=== PATIENT | female | born 1975 | race Caucasian/White ===

== ENCOUNTER 2018-10-03 21:38 | Emergency (ER) | payer MEDICAID, SELFPAY ==
[2018-10-03 21:39] VITALS: BP 133/76; PULSE 116; RESP 16; TEMP 36.7; O2SAT 100; BMI 19.9
--- NOTE | 2018-10-03 22:20 | ED.RN ---
RN in room to assess patient. Patient telling RN she thought world was going to end today but states I met my two best friends today God and Satan, God is my and I don't need to be here. I am leaving patient walks out of room and nurse asks to come back. lead worker of housekeeping and laundry enter room to assess patient.
--- NOTE | 2018-10-03 22:29 | CM.ED ---
SOCIAL WORK ASSESSMENT REFERRAL DATE: 10/03/18 DATE OF ASSESSMENT: 10/03/18 INFORMANT: SELF-REFERRAL REASON FOR CONSULT: MENTAL HEALTH-ANXIETY INFORMATION OBTAINED FROM: PATIENT LIVING ARRANGEMENTS: PATIENT REPORTS MOVED TO [facility] FROM THE [facility] OVER A WEEK AGO. SUPPORTS: PATIENT HAS GOOD SUPPORT FROM FRIENDS SOCIAL/FAMILY STRESSORS: PATIENT STATES WOKE UP AND THOUGHT THE WORLD WAS GOING TO END THEN REALIZED IT WASN'T AND FELT BETTER. MENTAL HEALTH HX: PATIENT ADMITS TO HX OF ANXIETY AND DEPRESSION AND STATES FOLLOWS WITH COUNSELING SERVICES. PATIENT UNABLE TO RECALL NAME OF AGENCY. SUBSTANCE ABUSE HX: PATIENT ADMITS TO HX OF SUBSTANCE ABUSE. PATIENT STATES WAS TAKING ADDERALL AND USED METH 3 DAYS AGO. INTERVENTIONS: ASSESSMENT ASSESSMENT: PATIENT IS A 42 Y/O FEMALE WHO PRESENTS TO THE ED FOR ANXIETY. UPON ENTERING ROOM PATIENT DOES NOT WANT TO BE SEEN AND WISHES TO RETURN HOME. PATIENT IS RESIDING AT [facility] AND WILL WALK BACK THERE. PATIENT CAME IN BECAUSE WAS HAVING THOUGHTS THE WORLD WAS GOING TO END, BUT NOW KNOWS THAT IT IS NOT. PATIENT ADMITS TO SUBSTANCE ABUSE. THIS WORKER NOTED PATIENT UNABLE TO KEEP TRACK OF THOUGHTS, JITTERY, AND UNABLE TO MAINTAIN EYE CONTACT. PATIENT DENIES SUICIDAL OR HOMICIDAL IDEATION. PATIENT WISHES TO LEAVE THE HOSPITAL. INFORMED PATIENT DOCTOR WILL BE IN SHORTLY TO ASSESS. PATIENT IN AGREEMENT AT THIS TIME. UPDATED NURSING. PLAN: PHYSICIAN TO ASSESS. PATIENT WISHES TO RETURN TO HOME BEFORE. MALAIKA GUERRA, DRIVER TRAINER, FEDERAL APPELLATE CLERK.
--- NOTE | 2018-10-03 22:48 | ED.VISSUMM ---
- ER Visit Summary Date of Service: 10/03/18 Chief Complaint: Abnormal behavior History of Present Illness: The patient is a 42 F who was brought in due to abnormal behavior. She is from a homeless intermediate. She states that she has recently used methamphetamine. She states that she began to freak out today thinking that the world was ending. She now states that she is over that. Apparently she had also told EMS or nursing here that she was to God. She denies any suicidal ideations or homicidal ideations. She states at this point she does not want any further help and just wants to go back to the homeless intermediate. Physical Examination: Afebrile heart rate 116 vitals otherwise normal Moist mucous membranes Heart regular rhythm tachycardia Lungs are clear Abdomen soft Alert Patient exhibits delusions Test Results: Not indicated Emergency Department Course and Treatment: Patient admits to methamphetamine use and presents with drug-induced psychosis. At this time she is not homicidal. She is not suicidal. I do not believe she represents a risk to herself. She states that she just wants to go back to the homeless intermediate. Patient discharged. Treatment Plan: [] Disposition: Discharge Impression: Drug-induced psychosis This note was generated with [employer] dictation software. It may contain incorrect words, spelling, and punctuation that were not noted in review of the chart prior to signing ED Disposition - Plan for ED Patient: Referrals: Care Physician,No Primary [Primary Care Provider] -
--- NOTE | 2018-10-03 22:50 | ED.DEP ---
ED Disposition - Plan for ED Patient: Instructions: ED Drug Abuse General Referrals: Care Physician,No Primary [Primary Care Provider] -
[2018-10-03 23:00] VITALS: RESP 18; O2SAT 98
== END 2018-10-03 23:01 | disposition home or self-care (01) ==
LOC: ED 22:51
PROVIDERS: Emergency Provider Emergency Medicine
DX: F15.959 Other stimulant use, unspecified with stimulant-induced psychotic disorder, unspecified (principal); Z59.0 Homelessness; Z72.0 Tobacco use
CPT/HCPCS: 99285

== ENCOUNTER 2018-10-04 11:22 | Emergency (ER) | payer MEDICAID, SELFPAY ==
[2018-10-03 21:39] VITALS: BMI 19.9
[2018-10-04 11:23] VITALS: PULSE 83; RESP 16; TEMP 36.5; O2SAT 98; BMI 20.7
--- NOTE | 2018-10-04 11:36 | ED.DCSUM_ITS ---
- ER Visit Summary Date of Service: 10/04/18 Chief Complaint: Tired. History of Present Illness: The patient is a 42 F who states that she is tired. Is currently living in a [place] [facility]. She was here last night for an evaluation because she thought God was to her. She admitted to doing methamphetamines a couple of days ago. It was found that she was in a drug- induced psychosis and was discharged back to the [facility] [place] [facility]. 911 was called today because somebody thought she needed to be evaluated. She complains of a mild headache. She denies being suicidal denies being homicidal. Denies any visual or auditory hallucinations at this time. Physical Examination: Vital signs reviewed. HEENT exam unremarkable. Heart is regular rate and rhythm without murmurs. Lungs are clear to auscultation. Abdomen is soft and nontender. Extremities reveal no edema. Skin exam normal. Neurologic exam normal. She has no visual hallucinations. No auditory hallucinations. Denies seeing or hearing things other people can hear or see. Denies being suicidal or homicidal. Test Results: None performed Emergency Department Course and Treatment: The patient admits to doing methamphetamines to me. I will give her Tylenol for her headache. I do not feel she meets any criteria for acute hospitalization. Patient will be discharged back to the [facility] [place] [facility] Treatment Plan: [] Disposition: Discharge Impression: Headache This note was generated with [employer] dictation software. It may contain incorrect words, spelling, and punctuation that were not noted in review of the chart prior to signing ED Disposition - Plan for ED Patient: Referrals: Care Physician,No Primary [Primary Care Provider] -
--- NOTE | 2018-10-04 11:36 | ED.DEP ---
ED Disposition - Plan for ED Patient: Disposition: Home or Assisted Living Instructions: ED Cephalgia Unspecified Referrals: Care Physician,No Primary [Primary Care Provider] -
[2018-10-04] MEDS: Acetaminophen 500 MG Tablet 1000 MG PO (11:50)
--- NOTE | 2018-10-04 12:10 | NURSING ---
CALLED MALAIKA, OUR NP, TO SEE PATIENT.
--- NOTE | 2018-10-04 12:30 | CM.ED ---
SOCIAL WORK NOTE: UPDATED BY NURSEGILDARDO AND DR. HERNANDEZ, PT DC'ED AND [facility] WILL NOT ACCEPT PT BACK. CALL TO [facility], SPOKE WITH YINKA. PER YINKA, PT WAS YELLING AT REFRIGERATOR STATING SHE WAS GOING TO KILL SOMEONE. YINKA STATES DUE TO OTHER RESIDENTS AND CHILDREN IN THE FACILITY STATES PT UNABLE TO RETURN. YINKA STATES CRISIS WAS ALREADY CALLED AND WANTED PSYCH EVALUATION COMPLETED. INFORMED YINKA PATIENT HAS BEEN D/C'ED AND RIDE ON WAY. YINKA STATES PATIENT WILL BE SENT TO ED AGAIN THIS DAY. NURSING AND DR. HERNANDEZ UPDATED. MALAIKA GUERRA, PATTERN MECHANIC, COSTUMER ASSISTANT.
--- NOTE | 2018-10-04 12:35 | CM.ED ---
SOCIAL WORK NOTE MET WITH PT IN [facility]. PT KNOWN TO THIS WORKER FROM ED VISIT LAST EVENING. PT SITTING UP IN CHAIR DRINKING COFFEE. PATIENT WITH ERRATIC BEHAVIOR. PT ADMITS TO METH USE 3 DAYS AGO AND STATES IS TIRED. PT STATES DOES NOT KNOW WHY SHE IS BACK IN THE HOSPITAL. PT STATES I WAS SLEEPING AND THEN I WAS HERE. WHEN ASKED ABOUT SUICIDAL IDEATION OR HOMICIDAL IDEATION PT DENIES ANY THOUGHTS OR PLANS. PT STATES WISHES TO RETURN TO [facility] TO SLEEP AND EAT. CALL TO [facility] WITH [facility]ISIS TO DISCUSS PT'S CASE. [facility] GARCIA WAS MADE AWARE OF NEED FOR CONSULT. INFORMED [facility] HERNANDEZ HAS D/C'ED PATIENT AND INFORMED HER OF CONVERSATION WITH YINKA AT [facility]. UPDATED PT PRESENT IN ED [facility]. PER HEAVEN, SKIRT MAKER EN ROUTE AND WILL HAVE HER MEET WITH PT FIRST. [facility] TO CALL YINKA AT [facility] AT THIS TIME. MALAIKA GUERRA, CONSUMER INSIGHTS INTERN, RUBBER COMPOUNDER MIXER.
--- NOTE | 2018-10-04 12:53 | ED.RN ---
PT DENIES SUICIDAL, HOMICIDAL IDEATIONS UPON ARRIVAL. SHE HAS MANIC TYPE BODY MOVEMENTS. COOPERATIVE
--- NOTE | 2018-10-04 12:55 | CM.ED ---
SOCIAL WORK NOTE RECEIVED CALL BACK FROM [facility]. PER [facility], SPOKE WITH [facility]INKA AND WAS INFORMED THEY HAVE NOT EVICTED PT FROM FACILITY AT THIS TIME, BUT STATES PT UNABLE TO COME BACK D/T CONCERN FOR OTHER RESIDENTS. AWAITING TANA FROM [facility] AT THIS TIME TO MEET WITH PT. MALAIKA GUERRA, ABATTOIR MANAGER, PERSONAL FITNESS TRAINER.
--- NOTE | 2018-10-04 13:52 | CM.ED ---
SOCIAL WORK NOTE TANA FROM [facility] HERE TALKING WITH PATIENT.
--- NOTE | 2018-10-04 14:03 | CM.ED ---
SOCIAL WORK NOTE PER TANA, PT DOES NOT MEET [facility]ITER[facility] FOR INPATIENT PSYCH. TANA SPOKE WITH THE [employer]. PT UNABLE TO RETURN FOR 30 DAYS. CALL TO [facility] WITH [facility]. UPDATED PT DOES NOT MEET [facility] FOR INPATIENT PSYCH. PER YINKA, WILL NEED TO TALK WITH PATIENT ACCOUNTING REPRESENTATIVE TO DISCUSS PLAN FOR PT RESIDENTS ARE AFRAID OF PT D/T PT'S BEHAVIOR AND HOMICIDAL COMMENTS THIS MORNING. [facility] TO CALL THIS WORKER BACK ONCE HE HAS SPOKEN WITH PATIENT ACCOUNTING REPRESENTATIVE. UPDATED STAFF. MALAIKA GUERRA, LAST PUTTER AWAY, LAB PACK CHEMIST.
--- NOTE | 2018-10-04 14:23 | ED.RN ---
After D/C, pt waiting for ride and RN received a call from [facility] stating pt was not able to return to facility. BRODIE Cordova was assisting from this point and Crisis Jayda evaluated pt determining she was not a psychiatric risk. The patient is currently waiting for a ride again and will return to [facility]. They are aware and will find placement for her if she is unable to remain at the facility.
--- NOTE | 2018-10-04 14:42 | CM.ED ---
SOCIAL WORK NOTE SPOKE WITH YINKA AT [facility]. PER YINKA, [facility] PLANNING FOR PT TO STAY IN [place] OVER THE WEEKEND AND LOOK INTO OTHER HOUSING OPTIONS FOR PT ON SUNDAY. HOSPITAL TRANSPORT HERE TO TRANSPORT PT BACK TO [facility] AT THIS TIME. UPDATED STAFF. MALAIKA GUERRA, CHILDREN'S MINISTER, CHOKER SETTER.
== END 2018-10-04 14:26 | disposition home or self-care (01) ==
LOC: ED 11:54
PROVIDERS: Emergency Provider Emergency Medicine; Family Provider Physician Assistant; PCP Physician Assistant
DX: R51 Headache (principal); F15.90 Other stimulant use, unspecified, uncomplicated; Z59.0 Homelessness
CPT/HCPCS: 99284

== ENCOUNTER 2020-04-07 12:05 | Emergency (ER) | payer MEDICAID, SELFPAY ==
[2020-04-07 12:07] VITALS: BP 110/72; PULSE 95; RESP 16; TEMP 36.7; O2SAT 98; BMI 27.4
--- NOTE | 2020-04-07 12:10 | ED.DCSUM_ITS ---
History of Present Illness Chief Complaint: Mental Health Informant: Patient Narrative: 44-year-old female presenting with chief complaint of hallucinations. She states that sometimes they are inside her head but she feels like her outside of her head currently. She states she has a history of this in the past. States she has a history of ADHD, schizophrenia, bipolar disorder. She states that she had an Invega shot last month and she has been doing well except for she missed her Invega shot due to inability to go to [place] because she has no transportation. Patient states that her hallucinations are mild currently but feels like they may get worse. Denies suicidal or homicidal ideation. She states that otherwise she has been healthy. She states that she has a place to go. She states he has not been doing drugs or drinking alcohol. Past Medical History - Allergies and Home Meds Allergies/Adverse Reactions: Allergies codeine Allergy (Verified 04/07/20 12:07) [place] Primary Care Physician: Fracisco Lei [GROUP OF PHYSICIANS] - 04/15/20 1:30 pm (Dr. Osorio April 15 13:30) Shelly Jean PA [NON-STAFF] - Prior records reviewed: Yes Past Medical History: - - Schizophrenia, ADHD, bipolar disorder Surgical History: noncontributory Smoking Status: Unknown if ever smoked Drugs: - - Street of methamphetamine use. Patient is current use. Review of Systems General: Denies: Chills, Fever, Sweats Eyes: Denies: Visual changes - bilaterally, Diplopia ENT: Denies: Rhinorrhea, Sore throat Cardiovascular: Denies: Chest pain, Palpitations Respiratory: Denies: Dyspnea, Cough, Dyspnea on exertion Gastrointestinal: Denies: Abdominal pain, Nausea, Vomiting, Diarrhea, Melena, Hematochezia Genitourinary: Denies: Dysuria, Hematuria, Frequency Musculoskeletal: Denies: Back pain, Extremity Pain Skin: Denies: Rash, Wounds Neurological: Denies: Headache Psych: Reports: - - Visual and auditory hallucinations Physical Exam General: Well nourished, No Acute Distress Head: Normocephalic, Atraumatic Eyes: Perrl, EOMI Cardiovascular: Regular rate, Regular rhythm Respiratory: No distress, CTA bilaterally Extremities: Nontender, No edema Skin: Normal color, No rash Neurological: Alert, Oriented x3 Psychological: Normal affect, Normal Mood, - - Does not appear agitated. She is calm and talking in normal sentences. No confusion. Diagnostic/Tx/Re-eval Clinical Impression(s) from Imaging Studies Chest X-Ray 04/07/20 12:45 IMPRESSION: Mild degree of increased linear markings at the lung bases suggestive of underlying atelectasis and/or scarring. Electronically Signed: Drew Mcclellan, at 13:18 EDT , Service support , Laboratory Data 04/07/20 04/07/20 04/07/20 12:25 12:25 12:25 WBC 8.2 RBC 4.17 L Hgb 13.1 Hct 39.0 MCV 93.5 MCH 31.4 MCHC 33.6 RDW Std Deviation 44.9 H RDW Coeff of Alondra 13.1 Plt Count 259 MPV 10.2 Immature Gran % (Auto) 0.600 Neut % (Auto) 67.5 Lymph % (Auto) 21.5 Tift % (Auto) 6.2 Eos % (Auto) 3.8 Baso % (Auto) 0.4 Absolute Neuts (auto) 5.5 Absolute Lymphs (auto) 1.76 Nucleated RBC % 0 Sodium 140 Potassium 3.7 Chloride 106 Carbon Dioxide 28.0 Anion Gap 6 BUN 7 Creatinine 0.65 Estim Creat Clear Calc 82.48 Est GFR (MDRD) Af Amer 127 Est GFR (MDRD) Non-Af 105 BUN/Creatinine Ratio 10.8 Glucose 107 H Calcium 8.9 Total Bilirubin 0.30 AST 11 L ALT 20 Alkaline Phosphatase 91 Total Protein 7.4 Albumin 3.7 Globulin 3.7 Albumin/Globulin Ratio 1.0 Serum , Qual Urine Color Urine Clarity Urine pH Ur Specific Ol[place]a Urine Protein Urine Glucose (UA) Urine Ketones Urine Occult Blood Urine Nitrite Urine Bilirubin Urine Urobilinogen Ur Leukocyte Esterase Urine RBC Urine WBC Ur Squamous Epith Cells Urine Bacteria Urine Mucus Urine Opiates Screen Urine Methadone Screen Ur Barbiturates Screen Ur Phencyclidine Scrn Ur Amphetamines Screen U Methamphetamin-MDMA U Benzodiazepines Scrn Urine Cocaine Screen U Cannabinoids Screen Ur Drug Screen Comment Ethyl Alcohol 3.0 04/07/20 04/07/20 04/07/20 12:25 14:00 14:00 WBC RBC Hgb Hct MCV MCH MCHC RDW Std Deviation RDW Coeff of Alondra Plt Count MPV Immature Gran % (Auto) Neut % (Auto) Lymph % (Auto) Tift % (Auto) Eos % (Auto) Baso % (Auto) Absolute Neuts (auto) Absolute Lymphs (auto) Nucleated RBC % Sodium Potassium Chloride Carbon Dioxide Anion Gap BUN Creatinine Estim Creat Clear Calc Est GFR (MDRD) Af Amer Est GFR (MDRD) Non-Af BUN/Creatinine Ratio Glucose Calcium Total Bilirubin AST ALT Alkaline Phosphatase Total Protein Albumin Globulin Albumin/Globulin Ratio Serum , Qual NEGATIVE Urine Color Yellow Urine Clarity Sl. Cloudy Urine pH 6.5 Ur Specific Ol[place] 1.010 Urine Protein Negative Urine Glucose (UA) Normal Urine Ketones Negative Urine Occult Blood Negative Urine Nitrite Negative Urine Bilirubin Negative Urine Urobilinogen Normal Ur Leukocyte Esterase 25 H Urine RBC 0 SEEN Urine WBC 0-5 SEEN Ur Squamous Epith Cells 0-5 SEEN Urine Bacteria 0 SEEN Urine Mucus 0 SEEN Urine Opiates Screen NEGATIVE Urine Methadone Screen NEGATIVE Ur Barbiturates Screen NEGATIVE Ur Phencyclidine Scrn NEGATIVE Ur Amphetamines Screen POSITIVE H U Methamphetamin-MDMA NEGATIVE U Benzodiazepines Scrn NEGATIVE Urine Cocaine Screen NEGATIVE U Cannabinoids Screen NEGATIVE Ur Drug Screen Comment Ethyl Alcohol - Medical Decision Making She presents because she is hearing voices some mild hallucinations. She is calm. She does not appear to be confused. Initially she wanted to be admitted so I did lab work and imaging as well as an EKG. After having her talk to the crisis counselor they were able to set her up with close follow-up so that she can get her medications locally. They did feel she was stable to go home. She will follow-up with Dr. Osorio on April 21, 2020 at 1330. I do believe the patient is safe to be discharged home at this time. She is given return precautions. Impression: 1. history of schizophrenia 2. Hallucinations ED Disposition - Plan for ED Patient: Disposition: Home or Assisted Living Instructions: ED Schizophrenia General Referrals: Shelly Jean PA [NON-STAFF] - [facility] [GROUP OF PHYSICIANS] - 04/15/20 1:30 pm (Dr. Osorio April 15 13:30)
--- NOTE | 2020-04-07 12:19 | EKG12_ITS ---
Test Reason : MENTAL HEALTH Blood Pressure : / mmHG Vent. Rate : 090 BPM Atrial Rate : 090 BPM P-R Int : 148 ms QRS Dur : 098 ms QT Int : 388 ms P-R-T Axes : 039 009 014 degrees QTc Int : 474 ms Normal sinus rhythm Low voltage QRS Incomplete right bundle branch block Cannot rule out Anterior infarct , age undetermined Abnormal ECG Confirmed by SAULO KNAPP ([id number]), digital editor BRIAN REBOLLAR ([id number]) on 04/12/2020 2:17:55 PM Referred By: MARYJANE Confirmed By:SAULO KNAPP
[2020-04-07 12:35] LABS: Absolute Lymphocyte Count 1.76 X10^3/uL (0.83-4.51); Absolute Neutrophil Count 5.5 X10^3/uL (2.0-7.7); Basophil# 0.03 X10^3/uL; Basophil% 0.4 % (0-1); Eosinophil# 0.31 X10^3/uL; Eosinophils% 3.8 % (0-5); Hemoglobin 13.1 g/dL (12.0-15.0); Lymphocyte # 1.76 X10^3/ul (4.0); Lymphocyte % 21.5 % (19-41); Mean Corp Hgb Conc 33.6 g/dL (32-36); Mean Corpuscular Hgb 31.4 pg (27.0-32.0); Mean Corpuscular Volume 93.5 fL (81-99); Mean Platelet Vol. 10.2 fl (6.2-12.0); Monocyte# 0.51 X10^3/uL; Monocyte% 6.2 % (0-10); NRBC Flagged by Analyzer 0 % (0-5); Neutrophil # 5.54 X10^3/uL (2.7-7.7); Neutrophil % 67.5 % (47-70); Platelet Count 259 K/mm3 (150-450); RBC Distribution Width CV 13.1 % (11.6-14.6); RBC Distribution Width SD 44.9 fl (35.1-43.9); Red Blood Count 4.17 M/mm3 (4.2-5.4); White Blood Count 8.2 K/mm3 (4.4-11.0)
--- NOTE | 2020-04-07 12:45 | RAD_ITS ---
STUDY: X-RAY CHEST REASON FOR EXAM: Female, 44 years old. Patient being seen for mental health, hallucinations, x-ray for medical clearance, no Hx of lung disease per patient, patient is a smoker TECHNIQUE: Single AP portable view of the chest. COMPARISON: None. FINDINGS: Mild increased linear markings at the lung bases suggestive of linear atelectasis and/or scarring. There is no demonstrated pleural abnormality. Normal size heart. Normal mediastinum and damian. Normal visualized pulmonary arteries. Normal visualized aortic arch and descending thoracic aorta. Normal visualized thoracic spine. Normal visualized ribs, clavicles, and shoulders. There is no demonstrated abnormality of the visualized soft tissue structures of the upper abdomen. RAD/Chest 1 View (Portable) IMPRESSION: Mild degree of increased linear markings at the lung bases suggestive of underlying atelectasis and/or scarring. Electronically Signed: Drew Mcclellan, at 13:18 EDT , Service support ,
[2020-04-07 13:02] LABS: AST(SGOT) 11 U/L (15-37); Alanine Aminotransfer ALT/SGPT 20 U/L (13-56); Albumin, Serum 3.7 g/dL (3.2-5.0); Alkaline Phosphatase 91 U/L (45-117); Anion Gap 6 (5-15); BUN 7 mg/dL (7-18); BUN/Creat Ratio 10.8 RATIO (10-20); Calcium,Total 8.9 mg/dL (8.5-10.1); Chloride 106 mmol/L (98-107); Creatinine, Serum 0.65 mg/dL (0.55-1.02); EST Glomerular Filtration Rate 105 mL/min (>60); Est Glom Filt Rate - Afr Amer 127 mL/min (>60); Estimated Creatinine Clearance 82.48 ml/min; Globulin 3.7 g/dL (2.2-4.2); Glucose 107 mg/dL (74-106); Potassium 3.7 mmol/L (3.5-5.1); Protein, Total 7.4 g/dL (6.4-8.2); Sodium Level 140 mmol/L (136-145)
[2020-04-07 13:24] LABS: Internal QC Validated? YES +Cl - CLEAR BKGD; Pregnancy, Serum, hCG Quali. NEGATIVE Negative
[2020-04-07 13:50] VITALS: RESP 14
[2020-04-07 14:08] LABS: Bacteria 0 SEEN /hpf (None Seen); Mucous, Urine 0 SEEN /hpf (<or=2+); Red Blood Cells-Urine 0 SEEN /hpf (0-5)
[2020-04-07 14:16] LABS: Color, Urine Yellow (Yellow); Glucose, Dipstick Normal (Normal); Ketone-Dipstick Negative (Negative); Leukocyte Esterase-Dipstick 25 /ul (Negative); Nitrite-Dipstick Negative (Negative); Occult Blood-Urine Negative /ul (Negative); Protein-Dipstick Negative (Negative); Urine Bilirubin Dipstick Negative (Negative); Urine Clarity Sl. Cloudy (Clear); Urine Urobilinogen Normal (Normal); Urine pH 6.5 (5.0 - 8.0)
[2020-04-07 14:29] LABS: Amphetamine Urine VISTA POSITIVE (<1000 ng/mL); Barbiturate Urine VISTA NEGATIVE (< 200 ng/mL); Benzodiazepine Urine VISTA NEGATIVE (< 200 ng/mL); Cocaine Urine VISTA NEGATIVE (< 300 ng/mL); Ecstacy Urine VISTA NEGATIVE (< 500 ng/mL); Methadone Urine VISTA NEGATIVE (< 300 ng/mL); PCP Urine VISTA NEGATIVE (< 25 ng/mL); THC Urine VISTA NEGATIVE (< 50 ng/mL); Vista UDS pH Range 5
[2020-04-07 14:30] LABS: Squamous Epithelial Cells - UA 0-5 SEEN /hpf (5-10); White Blood Cells 0-5 SEEN /hpf (0-5)
[2020-04-07 14:52] VITALS: BP 116/75
--- NOTE | 2020-04-07 14:52 | NURSING ---
FAXING CHART TO [facility], [facility],
[2020-04-07 15:36] VITALS: RESP 14
[2020-04-07 16:14] VITALS: BP 102/72; PULSE 90; RESP 16; O2SAT 98
--- NOTE | 2020-04-07 16:14 | ED.RN ---
BELONGINGS RETURNED TO PATIENT. DISCHARGE INSTRUCTIONS GIVEN TO AND REVIEWED WITH PATIENT, PATIENT DENIES QUESTIONS OR CONCERNS AND VOICES UNDERSTANDING OF DISCHARGE INSTRUCTIONS. PT AMBULATES OUT OF ROOM WITHOUT DIFFICULTY.
== END 2020-04-07 16:15 | disposition home or self-care (01) ==
PROVIDERS: Emergency Provider Student in an Organized Health Care Education/Training Program
DX: F20.9 Schizophrenia, unspecified (principal); F31.9 Bipolar disorder, unspecified; F90.9 Attention-deficit hyperactivity disorder, unspecified type; Z79.899 Other long term (current) drug therapy
CPT/HCPCS: 71045; 80053; 80307; 80320; 81001; 84703; 85025; 93005; 99283; G0480

== ENCOUNTER 2020-09-01 21:54 | Emergency (ER) | payer MEDICAID, SELFPAY ==
[2020-05-20 09:54] VITALS: BMI 27.4
[2020-09-01 21:55] VITALS: BP 121/93; PULSE 118; RESP 18; TEMP 36.1; O2SAT 98; BMI 25.8
--- NOTE | 2020-09-01 22:35 | ED.DCSUM_ITS ---
History of Present Illness Chief Complaint: Mental Health Informant: Patient, - - Law enforcement Onset: Today Context: Sudden Onset - Presumed sudden Timing: Continuous - Continuous Quality: Pacing, hyperactive, pressured speech and admission of methamphetamine use Location: Public property Current Severity: Moderate Maximum Severity: Moderate Worsened by: Inhalation of methamphetamine Relieved by: Nothing Associated Symptoms: Unable to determine Narrative: Patient is a 44-year-old woman who has been seen in the emergency department for mental health reasons. She does not know what medicine she was prescribed and should be taking. She does admit to smoking methamphetamine. She states she has addiction to methamphetamine. She would not answer past surgical history. She would not answer questions regarding past medical history. Patient is pacing in the room. Patient would not sit on the examination cot. She would not allow nurses to perform there duty. Patient was informed that she could be cooperative and it was explained to her what cooperative meant. And she was informed what it meant to be uncooperative. After she was told the consequences of not being cooperative she sat in the bed and allow nursing staff to attain an IV, blood work and initiate medical treatment Capacity - Capacity Assessment Tool Can the patient make a choice & communicate that choice?: No Can the patient understand benefits, risks and alternatives?: No Can the patient make a logical, rational choice?: No Is the choice the patient makes consistent w/ their values?: Unable to Determine Is there an impending, emergent risk to the patient?: Unable to Determine Does the patient have an Advance Directive?: No Is there a Surrogate Available?: No i.e. HCPOA: No i.e. close relative (spouse, child, parent, sibling)?: Unable to Determine Past Medical History - Allergies and Home Meds Allergies/Adverse Reactions: Allergies codeine Allergy (Verified 09/01/20 21:59) Hives Primary Care Physician: Care Physician,No Primary [Primary Care Provider] - Prior records reviewed: Yes Surgical History: noncontributory Lives: Alone Smoking Status: Unknown if ever smoked Alcohol: None - Unknown Drugs: - - Methamphetamine Review of Systems ROS: Unable to Obtain - Patient stated she needs to be institutionalized. Patient would not answer questions regarding drug rehabilitation or psychiatric evaluation. Physical Exam Vital Signs/Narrative: Vital Signs Temp Pulse Resp BP Pulse Ox 09/01/20 21:55 96.9 F L 118 H 18 121/93 H 98 Inital Vital Signs reviewed: Yes General: Well nourished, Well developed, - - Patient pacing, pressured speech, slightly agitated. Head: Normocephalic, Atraumatic Eyes: Perrl, EOMI. Negative for: Pale conjunctiva, Scleral icterus ENT: No rhinorrhea, Dry mucous membranes Neck: Supple, Nontender, No lymphadenopathy, No JVD Cardiovascular: Regular rhythm, No murmurs, Normal S1, Normal S2, S3, Tachycardia Respiratory: No distress, CTA bilaterally, Chest nontender Abdomen: Soft, Nontender, Nondistended, Normal bowel sounds Back: Nontender Extremities: Nontender, No edema Skin: Normal color, No rash, No Trauma. Negative for: Cyanosis, Diaphoresis, Jaundice Neurological: Alert, Oriented x3, Cranial nerves II-XII grossly intact, Normal Strength, Normal Sensation, Normal Gait Psychological: Agitated, - - Speech, hyperactivity, not rational. Diagnostic/Tx/Re-eval Laboratory Results 09/01/20 09/01/20 09/01/20 22:32 22:40 22:40 WBC 16.3 H RBC 4.22 Hgb 13.2 Hct 37.6 MCV 89.1 MCH 31.3 MCHC 35.1 RDW Std Deviation 41.4 RDW Coeff of Alondra 12.7 Plt Count 435 MPV 10.7 Immature Gran % (Auto) 1.900 H Neut % (Auto) 81.9 H Lymph % (Auto) 10.7 L Hamlin % (Auto) 5.1 Eos % (Auto) 0.1 Baso % (Auto) 0.3 Absolute Neuts (auto) 13.4 H Absolute Lymphs (auto) 1.74 Nucleated RBC % 0 Sodium 136 Potassium 3.1 L Chloride 103 Carbon Dioxide 22.0 Anion Gap 11 BUN 17 Creatinine 0.65 Estim Creat Clear Calc 102.32 Est GFR (MDRD) Af Amer 125 Est GFR (MDRD) Non-Af 104 BUN/Creatinine Ratio 26.0 H Glucose 95 Calcium 9.3 Serum , Qual Urine Opiates Screen NEGATIVE Urine Methadone Screen NEGATIVE Ur Barbiturates Screen NEGATIVE Ur Phencyclidine Scrn NEGATIVE Ur Amphetamines Screen POSITIVE H U Methamphetamin-MDMA POSITIVE H U Benzodiazepines Scrn NEGATIVE Urine Cocaine Screen NEGATIVE U Cannabinoids Screen NEGATIVE Ur Drug Screen Comment Ethyl Alcohol 09/01/20 09/01/20 22:40 22:40 WBC RBC Hgb Hct MCV MCH MCHC RDW Std Deviation RDW Coeff of Alondra Plt Count MPV Immature Gran % (Auto) Neut % (Auto) Lymph % (Auto) Hamlin % (Auto) Eos % (Auto) Baso % (Auto) Absolute Neuts (auto) Absolute Lymphs (auto) Nucleated RBC % Sodium Potassium Chloride Carbon Dioxide Anion Gap BUN Creatinine Estim Creat Clear Calc Est GFR (MDRD) Af Amer Est GFR (MDRD) Non-Af BUN/Creatinine Ratio Glucose Calcium Serum , Qual NEGATIVE Urine Opiates Screen Urine Methadone Screen Ur Barbiturates Screen Ur Phencyclidine Scrn Ur Amphetamines Screen U Methamphetamin-MDMA U Benzodiazepines Scrn Urine Cocaine Screen U Cannabinoids Screen Ur Drug Screen Comment Ethyl Alcohol < 3.0 CBC is elevated which could be due to agitation and use of sympathomimetics. Talk screen is positive for methamphetamine and amphetamines. Serum test is negative. Alcohol is less than 3.0. 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 - Medical Decision Making Patient appears to be under the influence of a sympathomimetic. IV was established. She received 2 mg of Ativan since there is no IV Valium available. Will also administer IV Versed since onset is much quicker and will take effect prior to the onset of Ativan. Work-up was undertaken to determine metabolic or infectious etiology. If this is drug-induced psychosis will again ask patient if she would like help with regards to her drug addiction. If this is a true psychiatric crisis will obtain consultation with licensed nuclear operator from the crisis center. Physical exam was completed after patient received 2 mg of Versed and 2 mg of Ativan. She is resting comfortably. She is no longer agitated, pacing and speech is not pressured. Since she responded to benzodiazepine and was t achycardic suspect this is amphetamine induced psychosis. Review of prior records indicates patient has history of schizophrenia and drug- induced psychosis. Attempt to reevaluate at 0005 was unsuccessful because patient is asleep and did not arouse to light touch or verbal stimulus. Will allow patient to sleep and reevaluate later. Patient was reassessed at 0305. She states she is able to call for a ride. She is no longer agitated. ED Disposition - Plan for ED Patient: Diagnosis: Substance or medication-induced psychotic disorder, Methamphetamine use disorder, mild, abuse Instructions: ED Drug Abuse, ED Psychosis Referrals: Care Physician,No Primary [Primary Care Provider] - [facility] [STAFF PHYSICIAN] - As soon as possible
[2020-09-01] MEDS: Midazolam 2 MG/2 ML Syringe IV (22:46)
[2020-09-01] MEDS: LORazepam 2 MG/ML Syringe IV (22:48)
[2020-09-01 23:09] LABS: Amphetamine Urine VISTA POSITIVE (<1000 ng/mL); Barbiturate Urine VISTA NEGATIVE (< 200 ng/mL); Benzodiazepine Urine VISTA NEGATIVE (< 200 ng/mL); Cocaine Urine VISTA NEGATIVE (< 300 ng/mL); Ecstacy Urine VISTA POSITIVE (< 500 ng/mL); Methadone Urine VISTA NEGATIVE (< 300 ng/mL); PCP Urine VISTA NEGATIVE (< 25 ng/mL); THC Urine VISTA NEGATIVE (< 50 ng/mL); Vista UDS pH Range 5
[2020-09-01 23:13] LABS: Internal QC Validated? YES +Cl - CLEAR BKGD; Pregnancy, Serum, hCG Quali. NEGATIVE Negative
[2020-09-01 23:19] LABS: Alcohol, Blood (Medical)-Serum < 3.0 mg/dL; Anion Gap 11 (5-15); BUN 17 mg/dL (7-18); Calcium,Total 9.3 mg/dL (8.5-10.1); Chloride 103 mmol/L (98-107); Creatinine, Serum 0.65 mg/dL (0.55-1.02); EST Glomerular Filtration Rate 104 mL/min (>60); Est Glom Filt Rate - Afr Amer 125 mL/min (>60); Estimated Creatinine Clearance 102.32 ml/min; Glucose 95 mg/dL (74-106); Potassium 3.1 mmol/L (3.5-5.1); Sodium Level 136 mmol/L (136-145)
[2020-09-01 23:29] VITALS: RESP 14
[2020-09-01 23:29] LABS: Absolute Lymphocyte Count 1.74 X10^3/uL (0.83-4.51); Absolute Neutrophil Count 13.4 X10^3/uL (2.0-7.7); Basophil# 0.05 X10^3/uL; Basophil% 0.3 % (0-1); Eosinophil# 0.01 X10^3/uL; Eosinophils% 0.1 % (0-5); Hematocrit 37.6 % (37-47); Hemoglobin 13.2 g/dL (12.0-15.0); Lymphocyte # 1.74 X10^3/ul (4.0); Lymphocyte % 10.7 % (19-41); Mean Corp Hgb Conc 35.1 g/dL (32-36); Mean Corpuscular Hgb 31.3 pg (27.0-32.0); Mean Corpuscular Volume 89.1 fL (81-99); Mean Platelet Vol. 10.7 fl (6.2-12.0); Monocyte# 0.83 X10^3/uL; Monocyte% 5.1 % (0-10); NRBC Flagged by Analyzer 0 % (0-5); Neutrophil # 13.36 X10^3/uL (2.7-7.7); Neutrophil % 81.9 % (47-70); Platelet Count 435 K/mm3 (150-450); RBC Distribution Width CV 12.7 % (11.6-14.6); RBC Distribution Width SD 41.4 fl (35.1-43.9); Red Blood Count 4.22 M/mm3 (4.2-5.4); White Blood Count 16.3 K/mm3 (4.4-11.0)
[2020-09-02] VITALS (7 sets, daily range): BP systolic 114; BP diastolic 85; PULSE 114; RESP 14–16; O2SAT 99
== END 2020-09-02 07:06 | disposition home or self-care (01) ==
PROVIDERS: Emergency Provider Emergency Medicine
DX: F15.10 Other stimulant abuse, uncomplicated (principal); F20.9 Schizophrenia, unspecified; Z79.899 Other long term (current) drug therapy
CPT/HCPCS: 80048; 80307; 82077; 84703; 85025; 96374; 96375; 99284

== ENCOUNTER 2020-09-22 12:15 | Emergency (ER) | payer MEDICAID, SELFPAY ==
[2020-09-22] VITALS (12 sets, daily range): BP systolic 122–131; BP diastolic 79–118; PULSE 97–125; RESP 16–20; TEMP 36.1; O2SAT 96–100; BMI 24.7
--- NOTE | 2020-09-22 12:27 | CT_ITS ---
STUDY: CT BRAIN WITHOUT CONTRAST REASON FOR EXAM: Female, 49 years old. ALTERED MENTAL STATUS, NO OTHER HISTORY AVAILABLE RADIATION DOSAGE (If Supplied By Facility): CTDIvol = ( 44.99 ) mGy, DLP = ( 796.11 ) mGycm TECHNIQUE: Transaxial CT imaging of the brain was performed without administration of intravenous contrast material. Individualized dose optimization techniques were used for this CT. COMPARISON: No relevant priors. FINDINGS: Normal soft tissue structures. Normal calvarium. Normal size ventricles and extra-axial spaces for the patient''s age. Normal white matter tracts of the cerebral hemispheres. Normal basal ganglia and thalami. Normal brainstem. Normal cerebellum. There is no intracranial hemorrhage. There are no findings of an acute ischemic infarction. Normal visualized paranasal sinuses. CT/Brain/Head without Contrast IMPRESSION: Normal unenhanced CT scan of the brain. Electronically Signed: Drew Mcclellan MD at 13:23 EST , Service support ,
--- NOTE | 2020-09-22 12:29 | ED.DCSUM_ITS ---
History of Present Illness Informant: Nuclear Power Reactor Operator Narrative: Female of unknown age brought in by police and fire department. Patient was apparently at a local motel and came inside wandering around acting incoherent. Police were called. She initially tried to evade but calm down in the ambulance. She has not spoken. She will not tell us her name. She had a cell phone that is locked. She is wearing a T-shirt a pair of sweatpants shorts and socks and slippers. She has a tight here band like material wrapped tightly around her right hand. She is shivering and cold to the touch. Patient keeps her head down and will not look at staff. PGT was normal for EMS. She had no ID or paraphernalia on her. <Dieudonne Mendiola - Last Filed: 09/22/20 15:42> <Mikel Izquierdo - Last Filed: 09/23/20 00:55> Chief Complaint: Alt LOC Past Medical History Past Medical History: - - Unable to obtain Surgical History: - - Unable to obtain Lives: - - Unable to obtain Smoking Status: Unknown if ever smoked Drugs: - - unable to obtain <Dieudonne Mendiola - Last Filed: 09/22/20 15:42> <Mikel Izquierdo - Last Filed: 09/23/20 00:55> - Allergies and Home Meds Allergies/Adverse Reactions: Allergies codeine Allergy (Verified 09/01/20 21:59) Hives Primary Care Physician: NOT,DEFINED [Primary Care Provider] - Review of Systems ROS: Unable to Obtain <Dieudonne Mendiola - Last Filed: 09/22/20 15:42> Physical Exam Vital Signs/Narrative: Vital Signs Temp Pulse Resp BP Pulse Ox 09/22/20 12:16 97 F L 125 H 20 H 131/92 H 96 Inital Vital Signs reviewed: Yes General: Well nourished, Well developed, No Acute Distress Head: Normocephalic, Atraumatic Eyes: Perrl, EOMI ENT: Moist mucous membranes, No rhinorrhea Neck: Supple, Nontender Cardiovascular: Regular rate, No murmurs, Tachycardia Respiratory: No distress, CTA bilaterally, Chest nontender Abdomen: Soft, Nontender, Nondistended, Normal bowel sounds Back: Nontender, Normal Inspection Extremities: Nontender, No edema Skin: Normal color, No rash, Trauma - Superficial abrasions to the left hand Neurological: Alert, - - Patient moves all 4 extremities. She does not participate in the exam. <Dieudonne Mendiola - Last Filed: 09/22/20 15:42> Vital Signs/Narrative: Vital Signs Pulse Resp BP Pulse Ox 09/23/20 00:00 16 09/22/20 23:00 97 17 129/79 H 99 09/22/20 22:00 17 09/22/20 21:00 17 <Mikel Izquierdo - Last Filed: 09/23/20 00:55> Diagnostic/Tx/Re-eval Clinical Impression(s) from Imaging Studies Brain CT 09/22/20 12:27 IMPRESSION: Normal unenhanced CT scan of the brain. Electronically Signed: Drew Mcclellan MD at 13:23 EST , Service support , Chest X-Ray 09/22/20 13:12 IMPRESSION: Normal x-ray examination of the chest. Electronically Signed: Drew Mcclellan MD at 13:25 EST , Service support , - EKG Initial EKG Interpretation: Sinus Tachycardia - EKG shows a sinus tachycardia at a rate of 115. There are no concerning features of ACS or ectopy. - Medical Decision Making My interpretation of the single view portable chest x-ray is no acute process. CT of the brain was obtained and is negative for acute as well. Patient eventually started speaking and had very sporadic movements and twitches. She is able to ambulate to the bathroom. She was able to actually give us her name. But she is still having a paucity of speech. Patient received warm blankets and basic blood work was drawn. He has an elevated CPK of 3400. She received initially 2 L of IV fluids followed by additional 2 L of lactated Ringer's. A repeat CPK will be ordered. Once she is medically cleared we can reassess her mental health. <Dieudonne Mendiola - Last Filed: 09/22/20 15:42> - Medical Decision Making Felecia-patient was turned over to me. She is now lucid and coherent her CPK is improving she received IV fluids. She wants to be discharged and this is reasonable. <Mikel Izquierdo - Last Filed: 09/23/20 00:55> ED Disposition <Dieudonne Mendiola - Last Filed: 09/22/20 15:42> <Mikel Izquierdo - Last Filed: 09/23/20 00:55> - Plan for ED Patient: Disposition: Home or Assisted Living Diagnosis: Methamphetamine abuse, Catatonia, Rhabdomyolysis Instructions: ED Rhabdomyolysis, ED Drug Abuse Referrals: NOT,DEFINED [Primary Care Provider] -
[2020-09-22 12:56] LABS: Absolute Lymphocyte Count 1.34 X10^3/uL (0.83-4.51); Basophil# 0.03 X10^3/uL; Basophil% 0.3 % (0-1); Eosinophil# 0.06 X10^3/uL; Eosinophils% 0.5 % (0-5); Hematocrit 38.6 % (37-47); Hemoglobin 13.7 g/dL (12.0-15.0); Lymphocyte # 1.34 X10^3/ul (4.0); Lymphocyte % 11.5 % (19-41); Mean Corp Hgb Conc 35.5 g/dL (32-36); Mean Corpuscular Hgb 32.6 pg (27.0-32.0); Mean Corpuscular Volume 91.9 fL (81-99); Mean Platelet Vol. 10.1 fl (6.2-12.0); Monocyte# 1.09 X10^3/uL; Monocyte% 9.4 % (0-10); NRBC Flagged by Analyzer 0 % (0-5); Neutrophil # 9.04 X10^3/uL (2.7-7.7); Neutrophil % 77.9 % (47-70); Platelet Count 397 K/mm3 (150-450); RBC Distribution Width CV 13.7 % (11.6-14.6); RBC Distribution Width SD 45.6 fl (35.1-43.9); White Blood Count 11.6 K/mm3 (4.4-11.0)
[2020-09-22 13:01] LABS: Internal QC Validated? YES +Cl - CLEAR BKGD
[2020-09-22 13:06] LABS: Pregnancy, Serum, hCG Quali. NEGATIVE Negative
--- NOTE | 2020-09-22 13:06 | EKG12_ITS ---
Test Reason : ALTERED LOC Blood Pressure : / mmHG Vent. Rate : 115 BPM Atrial Rate : 115 BPM P-R Int : 130 ms QRS Dur : 086 ms QT Int : 342 ms P-R-T Axes : 050 013 040 degrees QTc Int : 473 ms Sinus tachycardia Low voltage QRS Possible Anterolateral infarct , age undetermined Abnormal ECG Confirmed by LYUDMILA PURDY, CAL ([id number]), non linear editor DION GU ([id number]) on 09/27/2020 11:08:00 AM Referred By: AUNG Confirmed By:ANNE COREAS MD
[2020-09-22 13:07] LABS: Partial Thromboplast Time 30.4 Seconds (24.1-36.2); Prothrombin Time (Protime)PT. 12.7 SECONDS (11.7-14.9)
[2020-09-22 13:08] LABS: Bacteria 0 SEEN /hpf (None Seen); Mucous, Urine 0 SEEN /hpf (<or=2+); Red Blood Cells-Urine 0 SEEN /hpf (0-5); Squamous Epithelial Cells - UA 0 SEEN /hpf (5-10); White Blood Cells 0 SEEN /hpf (0-5)
[2020-09-22 13:11] LABS: Color, Urine Yellow (Yellow); Glucose, Dipstick Normal (Normal); Ketone-Dipstick 15 mg/dl (Negative); Leukocyte Esterase-Dipstick 25 /ul (Negative); Nitrite-Dipstick Negative (Negative); Occult Blood-Urine Negative /ul (Negative); Protein-Dipstick Negative (Negative); Specific Gravity, Urine 1.015 (1.002-1.030); Urine Bilirubin Dipstick Negative (Negative); Urine Clarity Clear (Clear); Urine Urobilinogen Normal (Normal); Urine pH 6.5 (5.0 - 8.0)
--- NOTE | 2020-09-22 13:12 | RAD_ITS ---
STUDY: X-RAY CHEST REASON FOR EXAM: Female, 49 years old. Altered mental status TECHNIQUE: Single AP portable view of the chest. COMPARISON: None. FINDINGS: EKG electrodes are seen. The lungs are clear and expanded. There is no demonstrated pleural abnormality. Normal size heart. Normal mediastinum and damian. Normal visualized pulmonary arteries. Normal visualized aortic arch and descending thoracic aorta. Normal visualized thoracic spine. Normal visualized ribs, clavicles, and shoulders. There is no demonstrated abnormality of the visualized soft tissue structures of the upper abdomen. RAD/Chest 1 View (Portable) IMPRESSION: Normal x-ray examination of the chest. Electronically Signed: Drew Mcclellan MD at 13:25 EST , Service support ,
[2020-09-22 13:18] LABS: ALB/GLOB Ratio 1.1 RATIO (0.9-2.4); AST(SGOT) 101 U/L (15-37); Alanine Aminotransfer ALT/SGPT 44 U/L (13-56); Albumin, Serum 4.1 g/dL (3.2-5.0); Alkaline Phosphatase 86 U/L (45-117); Anion Gap 11 (5-15); BUN 7 mg/dL (7-18); BUN/Creat Ratio 9.6 RATIO (10-20); Calcium,Total 9.1 mg/dL (8.5-10.1); Chloride 99 mmol/L (98-107); Creatinine, Serum 0.73 mg/dL (0.55-1.02); Estimated Creatinine Clearance 79.61 ml/min; Globulin 3.6 g/dL (2.2-4.2); Glucose 102 mg/dL (74-106); Lipase 37 U/L (73-393); Potassium 3.2 mmol/L (3.5-5.1); Protein, Total 7.7 g/dL (6.4-8.2); Sodium Level 135 mmol/L (136-145)
[2020-09-22 13:26] LABS: Amphetamine Urine VISTA POSITIVE (<1000 ng/mL); Barbiturate Urine VISTA NEGATIVE (< 200 ng/mL); Benzodiazepine Urine VISTA NEGATIVE (< 200 ng/mL); Cocaine Urine VISTA NEGATIVE (< 300 ng/mL); Ecstacy Urine VISTA POSITIVE (< 500 ng/mL); Methadone Urine VISTA NEGATIVE (< 300 ng/mL); PCP Urine VISTA NEGATIVE (< 25 ng/mL); THC Urine VISTA NEGATIVE (< 50 ng/mL); Vista UDS pH Range 6
[2020-09-22 13:29] LABS: Alcohol, Blood (Medical)-Serum < 3.0 mg/dL
[2020-09-22 13:35] LABS: CPK Total, Creatine Kinase 3416 U/L (26-192)
[2020-09-22 13:41] LABS: Lactic Acid 1.7 mmol/L (0.4-1.9)
--- NOTE | 2020-09-22 13:49 | ED.RN ---
pt awake /talking. pt asks for oj and apple juice. pt given meal, pt very polite and thanks this rn
[2020-09-22] MEDS: 0.9% Normal Saline 1,000 ML 999 ML IV ×2 (13:57→14:45)
[2020-09-22] MEDS: Haloperidol Lactate 5 MG/ML Vial 10 MG IM (14:08)
[2020-09-22] MEDS: LORazepam 2 MG/ML Syringe IM (14:08)
[2020-09-22] MEDS: Lactated Ringers 1,000 ML 999 ML IV ×2 (15:34→17:58)
[2020-09-22 15:50] LABS: CPK Total, Creatine Kinase 2340 U/L (26-192)
--- NOTE | 2020-09-22 18:52 | ED.RN ---
PT PULLED OUT HER IV AGAIN.
[2020-09-22 21:58] LABS: CPK Total, Creatine Kinase 1819 U/L (26-192)
--- NOTE | 2020-09-22 23:53 | ED.RN ---
Pt able to state name and . Thinks she is at her friends house and it is 2014. notified.
[2020-09-23] VITALS: RESP 16
[2020-09-23 00:56] VITALS: PULSE 97; RESP 17; O2SAT 98
== END 2020-09-23 00:59 | disposition home or self-care (01) ==
PROVIDERS: Emergency Medicine; Emergency Provider Emergency Medicine
DX: F15.10 Other stimulant abuse, uncomplicated (principal); F20.2 Catatonic schizophrenia; M62.82 Rhabdomyolysis
CPT/HCPCS: 36415; 70450; 71045; 80053; 80307; 81001; 82077; 82550; 83605; 83690; 84484; 84703; 85025; 85610; 85730; 93005; 96360; 96361; 96372; 99285; J7030; J7120; A4216

== ENCOUNTER 2020-10-02 09:18 | Emergency (ER) | payer MEDICAID, SELFPAY ==
[2020-10-02 09:21] VITALS: BP 157/103; PULSE 99; RESP 18; TEMP 35.7; O2SAT 99; BMI 28.3
[2020-10-02] MEDS: LORazepam 1 MG Tablet PO (10:16)
--- NOTE | 2020-10-02 10:19 | ED.VISSUMM ---
- ER Visit Summary Date of Service: 10/02/20 Chief Complaint: Abnormal behavior History of Present Illness: The patient is a 44 F who presents with abnormal behavior that was noticed today. Patient was brought in because she was saying that her father was trying to get her. Nursing reports that the patient told them that her father put a pentagram in the street and was out to get her. Patient told me she is feeling better and just is feeling depressed. Patient denies any suicidal or homicidal ideations. Patient states she has been noncompliant with her antidepressants. Patient denies any other complaints. Physical Examination: Vital signs are stable. Patient is afebrile. Patient is in no acute distress. Oral mucosa is pink and moist. Neck is supple. Trachea is midline. There is no JVD noted. Heart was regular rate and rhythm. Lungs are clear and equal bilaterally. Abdomen is soft. Bowel sounds are normal. There is no tenderness. There is no rebound or guarding noted. Skin is warm dry. Cranial nerves II through XII are intact. There are no focal motor or sensory deficits noted. Extremities are intact. There is no calf tenderness or edema. Patient does have a flat affect. Patient does have some pressured speech and is quick to answer questions. Patient denies any suicidal or homicidal ideations. Test Results: Urine tox screen was positive for amphetamines and methamphetamines. Patient refused any other lab work. Emergency Department Course and Treatment: Patient was given a dose of Ativan here. Patient states she is feeling better and wants to go home. political worker was in to evaluate the patient. Patient is not suicidal or homicidal. Patient is coherent and able to make sound judgments. Patient will be discharged home. Patient was instructed to follow-up with her primary care physician in 5 to 7 days. Patient does not want help with methamphetamine abuse. Patient understood and was agreeable with the plan. All questions were answered. Disposition: Discharge home Impression: 1. Methamphetamine abuse This note was generated with [employer] dictation software. It may contain incorrect words, spelling, and punctuation that were not noted in review of the chart prior to signing ED Disposition - Plan for ED Patient: Disposition: Home or Assisted Living Diagnosis: Methamphetamine abuse Instructions: ED Depression, ED Drug Abuse Referrals: Gloria Marion [NON-STAFF] - 5-7 Days
[2020-10-02 10:36] LABS: Amphetamine Urine VISTA POSITIVE (<1000 ng/mL); Barbiturate Urine VISTA NEGATIVE (< 200 ng/mL); Benzodiazepine Urine VISTA NEGATIVE (< 200 ng/mL); Cocaine Urine VISTA NEGATIVE (< 300 ng/mL); Ecstacy Urine VISTA POSITIVE (< 500 ng/mL); Methadone Urine VISTA NEGATIVE (< 300 ng/mL); PCP Urine VISTA NEGATIVE (< 25 ng/mL); THC Urine VISTA NEGATIVE (< 50 ng/mL); Vista UDS pH Range 6
--- NOTE | 2020-10-02 10:40 | CM.ED ---
SOCIAL WORK ASSESSMENT Informant: Dr. Wayne Reason for Consult: Mental Health/Substance Abuse Collaboration with Dr. Wayne. Patient requesting to leave. Patient positive for methamphetamines. Patient denies any suicidal or homicidal ideation. Met with patient in room. Introduced role and reason for referral. Patient reports history of anxiety and depression and states, I feel better now. Patient states follows with [facility]. Patient denies any substance abuse. Discussed patient's positive tox screen. Patient states oh yeah, well meth. Patient declines any need for assistance with substance abuse. Patient states lives with friends and will return home. Patient continues to deny any suicidal or homicidal ideation. Updated Dr. Wayne and nursing on the above. All in agreement with plan for discharge home. Plan: Home Diaz Vaughn MSW, BROADCAST OPERATIONS MANAGER
[2020-10-02 10:54] VITALS: BP 128/76; PULSE 82; RESP 16; O2SAT 97
== END 2020-10-02 10:56 | disposition home or self-care (01) ==
PROVIDERS: Emergency Provider Emergency Medicine
DX: F15.10 Other stimulant abuse, uncomplicated (principal); Z91.19 Patient's noncompliance with other medical treatment and regimen; F32.9 Major depressive disorder, single episode, unspecified
CPT/HCPCS: 80307; 99284

== ENCOUNTER 2021-08-01 07:07 | Emergency (ER) | payer MEDICAID, SELFPAY ==
[2021-08-01 07:08] VITALS: BP 128/90; PULSE 150; RESP 16; TEMP 36.6; O2SAT 99; BMI 24.7
--- NOTE | 2021-08-01 07:18 | CT_ITS ---
STUDY: CT BRAIN WITHOUT CONTRAST REASON FOR EXAM: Female, 45 years old. Change in Mental Status RADIATION DOSAGE (If Supplied By Facility): CTDIvol = ( 44.99 ) mGy, DLP = ( 745.49 ) mGycm TECHNIQUE: Transaxial CT imaging of the brain was performed without administration of intravenous contrast material. Individualized dose optimization techniques were used for this CT. COMPARISON: No relevant priors. FINDINGS: Normal soft tissue structures. Normal calvarium. Normal size ventricles and extra-axial spaces for the patient''s age. Normal white matter tracts of the cerebral hemispheres. Normal basal ganglia and thalami. Normal brainstem. Normal cerebellum. There is no intracranial hemorrhage. There are no findings of an acute ischemic infarction. Normal visualized paranasal sinuses. CT/Brain/Head without Contrast IMPRESSION: Normal unenhanced CT scan of the brain. Electronically Signed: Drew Mcclellan MD at 8:20 EST , Service support ,
--- NOTE | 2021-08-01 07:18 | EKG12_ITS ---
Test Reason : TACHY Blood Pressure : / mmHG Vent. Rate : 135 BPM Atrial Rate : 135 BPM P-R Int : 128 ms QRS Dur : 080 ms QT Int : 294 ms P-R-T Axes : 067 -48 053 degrees QTc Int : 441 ms Sinus tachycardia Left anterior fascicular block Poor R wave progression Abnormal ECG Confirmed by SANFORD PURDY, THAI ([id number]), fashion editor DION GU ([id number]) on 08/03/2021 10:53:47 AM Referred By: ALMA Confirmed By:THAI CHRISTINA MD
--- NOTE | 2021-08-01 07:18 | RAD_ITS ---
STUDY: X-RAY CHEST REASON FOR EXAM: Female, 45 years old. dyspnea TECHNIQUE: Single AP portable view of the chest. COMPARISON: 04/07/2020 FINDINGS: The lungs are clear and expanded. There is no demonstrated pleural abnormality. Normal size heart. Normal mediastinum and damian. Normal visualized pulmonary arteries. Normal visualized aortic arch and descending thoracic aorta. Normal visualized thoracic spine. Normal visualized ribs, clavicles, and shoulders. There is no demonstrated abnormality of the visualized soft tissue structures of the upper abdomen. RAD/Chest 1 View (Portable) IMPRESSION: Normal x-ray examination of the chest. Electronically Signed: Truman Shaikh MD at 8:24 EST Tel , Service support ,
--- NOTE | 2021-08-01 07:19 | EDS_ITS ---
HPI HPI - Psych History of Present Illness Chief Complaint: Confusion Narrative Narrative: 45-year-old female with history of schizophrenia and methamphetamine abuse presenting with confusion. She states that she does not know how long she has been confused. She does think it has been days. She states that she has been taking her medicine, but cannot remember what these medicines were called. She then states that she might not have taken her medication this morning. She states that she has difficulty drinking but does not have nausea or vomiting. She is not sure if she has been eating or drinking. She does not have any abdominal pain. She admits to leg cramping, but was able to walk to the emergency room in the rain to be evaluated. She states that she lives on [facility] [address] with somebody named Dedrick. She does not know how far away this is. She states that she has been up all night. She does not have chest pain but does feel as if she is short of breath. She does not admit to any fever or chills. PFSH PFSH Home Medications Midodrine HCl 1 tab PO BID 04/07/20 [History Last Taken Unknown] gabapentin 600 mg PO Q6H 04/07/20 [History Last Taken Unknown] levetiracetam 500 mg PO BID 04/07/20 [History Last Taken Unknown] paliperidone palmitate 234 mg IM QMONTH 04/07/20 [History Last Taken Unknown] Unobtainable 09/22/20 [History Last Taken Unknown] Allergy/AdvReac Type Severity Reaction Status Date / Time codeine Allergy Hives Verified 08/01/21 07:08 Social History Smoking Status: Current every day smoker tobacco type: cigarettes ROS ROS ED Constitutional Constitutional ED: Denies chills or fever(s) Eyes Eyes: Denies blurry vision or diplopia ENT ENT ED: Denies rhinorrhea or sore throat Cardiovascular Cardiovascular: Reports racing heartbeat; Denies chest pain Respiratory/Chest Respiratory/Chest: Reports dyspnea and dyspnea on exertion; Denies cough Gastrointestinal Gastrointestinal: Denies abdominal pain, diarrhea, nausea or vomiting Genitourinary Genitourinary ED: Denies dysuria or hematuria Musculoskeletal Musculoskeletal: Reports other Details: Leg cramping Integumentary Denies Abrasions or rash Neurologic Neurologic: Denies headache(s) or paresthesias EXAM Physical Exam Const Vital Signs: 08/01/21 07:08 Temperature 97.9 F Temperature Source Oral Pulse Rate 150 H Respiratory Rate 16 Blood Pressure 128/90 H Blood Pressure Mean 102 Pulse Ox 99 Oxygen Delivery Method Room Air Positive well nourished and unkempt General Appearance ED: unkempt and NAD; Negative for pallor HEENT HEENT Narrative: Cigar but lodged in both ear canals. These are removed and TMs are normal. External auditory canals otherwise normal. normocephalic and atraumatic Eyes PERRL and EOMs intact bilaterally General Eye ED: Negative for scleral icterus Neck no lymphadenopathy and supple Resp normal respiratory effort and clear to auscultation bilaterally Cardio Rate: tachycardic Rhythm: regular rhythm GI non-tender Palpation: soft Extremity normal to inspection General Extremety ED: Negative for edema General Extremity: Negative for edema Neuro CN's II-XII intact bilaterally Sensorium / Orientation: alert Motor Exam: strength 5/5 throughout Psych cooperative Appearance: unkempt Activity / Motor Behavior: disorganized Thought Process: confused Memory / Cognition: memory grossly impaired Impaired Memory Type(s): Positive for short term Insight: poor Judgement: poor Skin General Skin Exam: Negative for jaundice or pallor MDM MDM MDM Narrative Medical decision making narrative: Patient presenting with confusion although she is alert and awake. She does not appear paranoid and she is calm. She denies homicidal or suicidal ideation. She has a history of methamphetamine use as well as schizophrenia. I cannot determine whether or not she is actually taking her medications at home for this. Patient is not homicidal or suicidal. Because she has a heart rate of 150 I did obtain an EKG and on my interpretation of this she has a sinus rhythm with a ventricular rate of 135 bpm without sign of ischemic change. Her chest x-ray on my interpretation shows no acute cardiopulmonary process. Because she is complaining of dyspnea I did check a rapid Covid and this is negative. D-dimer is also negative. High-sensitivity troponin is 5. CBC shows a slight leukocytosis of 14,000, however this is consistent with her previous blood work. Patient CPK is slightly elevated at 423. She is given a liter of IV fluids. Serum hCG is negative. CT of the brain is negative for acute findings. EtOH is negative. After obtaining the lab work I did go to the room to try to get her to give a urine specimen and she had eloped. Impression: 1. Confusion 2. History schizophrenia Lab Data Attestation: I reviewed the patient's lab results. Labs: Laboratory Results - last 24 hr 08/01/21 08/01/21 08/01/21 07:30 07:30 07:30 WBC 14.0 H RBC 4.80 Hgb 15.1 H Hct 44.2 MCV 92.1 MCH 31.5 MCHC 34.2 RDW Std Deviation 41.9 RDW Coeff of Alondra 12.4 Plt Count 346 MPV 10.5 Immature Gran % (Auto) 0.500 Neut % (Auto) 78.2 H Lymph % (Auto) 12.9 L Frio % (Auto) 7.9 Eos % (Auto) 0.3 Baso % (Auto) 0.2 Absolute Neuts (auto) 10.9 H Absolute Lymphs (auto) 1.80 Nucleated RBC % 0 D-Dimer Quant (PE/DVT) Sodium 141 Potassium 3.7 Chloride 106 Carbon Dioxide 26.0 Anion Gap 9 BUN 8 Creatinine 0.96 Estim Creat Clear Calc 55.25 Est GFR (MDRD) Af Amer 80 Est GFR (MDRD) Non-Af 66 BUN/Creatinine Ratio 8.3 L Glucose 107 H Calcium 9.9 Total Bilirubin 0.60 AST 20 ALT 20 Alkaline Phosphatase 72 Total Creatine Kinase Troponin I High Sens Total Protein 8.2 Albumin 4.5 Globulin 3.7 Albumin/Globulin Ratio 1.2 Serum , Qual Ethyl Alcohol < 3.0 08/01/21 08/01/21 08/01/21 07:30 07:30 07:30 WBC RBC Hgb Hct MCV MCH MCHC RDW Std Deviation RDW Coeff of Alondra Plt Count MPV Immature Gran % (Auto) Neut % (Auto) Lymph % (Auto) Frio % (Auto) Eos % (Auto) Baso % (Auto) Absolute Neuts (auto) Absolute Lymphs (auto) Nucleated RBC % D-Dimer Quant (PE/DVT) 0.29 Sodium Potassium Chloride Carbon Dioxide Anion Gap BUN Creatinine Estim Creat Clear Calc Est GFR (MDRD) Af Amer Est GFR (MDRD) Non-Af BUN/Creatinine Ratio Glucose Calcium Total Bilirubin AST ALT Alkaline Phosphatase Total Creatine Kinase 423 H Troponin I High Sens Total Protein Albumin Globulin Albumin/Globulin Ratio Serum , Qual NEGATIVE Ethyl Alcohol 08/01/21 07:30 WBC RBC Hgb Hct MCV MCH MCHC RDW Std Deviation RDW Coeff of Alondra Plt Count MPV Immature Gran % (Auto) Neut % (Auto) Lymph % (Auto) Frio % (Auto) Eos % (Auto) Baso % (Auto) Absolute Neuts (auto) Absolute Lymphs (auto) Nucleated RBC % D-Dimer Quant (PE/DVT) Sodium Potassium Chloride Carbon Dioxide Anion Gap BUN Creatinine Estim Creat Clear Calc Est GFR (MDRD) Af Amer Est GFR (MDRD) Non-Af BUN/Creatinine Ratio Glucose Calcium Total Bilirubin AST ALT Alkaline Phosphatase Total Creatine Kinase Troponin I High Sens 5 Total Protein Albumin Globulin Albumin/Globulin Ratio Serum , Qual Ethyl Alcohol Radiography Diagnostic Testing: Clinical Impression(s) from Imaging Studies Brain CT 08/01/21 07:18 IMPRESSION: Normal unenhanced CT scan of the brain. Electronically Signed: Drew Mcclellan MD at 8:20 EST , Service support , Chest X-Ray 08/01/21 07:18 IMPRESSION: Normal x-ray examination of the chest. Electronically Signed: Truman Shaikh MD at 8:24 EST Tel , Service support , Discharge Plan Triage Chief Complaint: Confusion ED Provider: Linus Christianson Dx/Rx/DC Orders Prescriptions: No Action gabapentin 600 MG tablet 600 mg PO Q6H RF: 0 levetiracetam 500 MG tablet 500 mg PO BID RF: 0 paliperidone palmitate 234 MG/1.5 ML syringe 234 mg IM QMONTH RF: 0 Midodrine HCl 1 TAB 1 tab PO BID RF: 0 Unobtainable RF: 0 Primary Care Provider: Care Physician,No Primary Referrals: Care Physician,No Primary [Primary Care Provider] - Disposition Disposition: Elopement Discharge Date/Time: 08/01/21 09:00
[2021-08-01 07:50] LABS: Absolute Neutrophil Count 10.9 X10^3/uL (2.0-7.7); Basophil# 0.03 X10^3/uL; Basophil% 0.2 % (0-1); Eosinophil# 0.04 X10^3/uL; Eosinophils% 0.3 % (0-5); Hematocrit 44.2 % (37-47); Hemoglobin 15.1 g/dL (12.0-15.0); Lymphocyte % 12.9 % (19-41); Mean Corp Hgb Conc 34.2 g/dL (32-36); Mean Corpuscular Hgb 31.5 pg (27.0-32.0); Mean Corpuscular Volume 92.1 fL (81-99); Mean Platelet Vol. 10.5 fl (6.2-12.0); Monocyte% 7.9 % (0-10); NRBC Flagged by Analyzer 0 % (0-5); Neutrophil # 10.91 X10^3/uL (2.7-7.7); Neutrophil % 78.2 % (47-70); Platelet Count 346 K/mm3 (150-450); RBC Distribution Width CV 12.4 % (11.6-14.6); RBC Distribution Width SD 41.9 fl (35.1-43.9)
[2021-08-01 08:01] LABS: Internal QC Validated? YES +Cl - CLEAR BKGD; Pregnancy, Serum, hCG Quali. NEGATIVE Negative
[2021-08-01 08:02] LABS: D-Dimer Quantitative (DVT/PE) 0.29 FEU/ug/m (0.27-0.49)
[2021-08-01 08:06] LABS: CPK Total, Creatine Kinase 423 U/L (26-192)
[2021-08-01 08:12] LABS: Alcohol, Blood (Medical)-Serum < 3.0 mg/dL
[2021-08-01 08:14] LABS: ALB/GLOB Ratio 1.2 RATIO (0.9-2.4); AST(SGOT) 20 U/L (15-37); Alanine Aminotransfer ALT/SGPT 20 U/L (13-56); Albumin, Serum 4.5 g/dL (3.2-5.0); Alkaline Phosphatase 72 U/L (45-117); Anion Gap 9 (5-15); BUN 8 mg/dL (7-18); BUN/Creat Ratio 8.3 RATIO (10-20); Calcium,Total 9.9 mg/dL (8.5-10.1); Chloride 106 mmol/L (98-107); Creatinine, Serum 0.96 mg/dL (0.55-1.02); EST Glomerular Filtration Rate 66 mL/min (>60); Est Glom Filt Rate - Afr Amer 80 mL/min (>60); Estimated Creatinine Clearance 55.25 ml/min; Globulin 3.7 g/dL (2.2-4.2); Glucose 107 mg/dL (74-106); Potassium 3.7 mmol/L (3.5-5.1); Protein, Total 8.2 g/dL (6.4-8.2); Sodium Level 141 mmol/L (136-145)
[2021-08-01 09:03] LABS: Troponin-I HS 5 pg/mL (3.0-54.0)
--- NOTE | 2021-08-01 10:19 | ED.RN ---
PT AMBULATED FROM ER WITHOUT SAYING ANYTHING TO ANYONE. NO IV PRESENT. 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
== END 2021-08-01 09:00 | disposition left against medical advice (07) ==
PROVIDERS: Emergency Provider Student in an Organized Health Care Education/Training Program
DX: R41.0 Disorientation, unspecified (principal); F20.9 Schizophrenia, unspecified; R06.00 Dyspnea, unspecified; Z79.899 Other long term (current) drug therapy; F15.10 Other stimulant abuse, uncomplicated; F17.210 Nicotine dependence, cigarettes, uncomplicated
CPT/HCPCS: 70450; 71045; 80053; 82077; 82550; 84484; 84703; 85025; 85379; 87426; 93005; 96360; 99281; J7030; A4216

== ENCOUNTER 2021-08-02 07:57 | Emergency (ER) | payer MEDICAID, SELFPAY ==
[2021-08-02 07:59] VITALS: BP 150/55; PULSE 127; RESP 22; TEMP 36.8; O2SAT 98; BMI 24.9
--- NOTE | 2021-08-02 08:02 | ED.RN ---
PT HAS METH IN HER CIGARETTES, METH GIVEN TO SECURITY.
--- NOTE | 2021-08-02 08:06 | ED.RN ---
THIS RN GOING THRU PT BELONGING. WHITE BAG OF POWDER FOUND IN PT CIGARRETTE PACK. PER PT ADMISSION IT IS METH. [employer] [employer] CONTACTED TO TURN OVER TO THEM.
--- NOTE | 2021-08-02 08:13 | ED.RN ---
PACKET OF WHITE POWDER TURNED OVER TO OFFICER [employer]
--- NOTE | 2021-08-02 08:21 | EKG12_ITS ---
Test Reason : ANXITY Blood Pressure : / mmHG Vent. Rate : 112 BPM Atrial Rate : 112 BPM P-R Int : 124 ms QRS Dur : 084 ms QT Int : 340 ms P-R-T Axes : 062 015 052 degrees QTc Int : 464 ms Sinus tachycardia Low voltage QRS (Limb Leads) Poor R wave progression Confirmed by SANFORD PURDY, THAI ([id number]), editorial specialist DION GU ([id number]) on 08/04/2021 11:44:04 AM Referred By: ELI Confirmed By:THAI CHRISTINA MD
--- NOTE | 2021-08-02 08:22 | EDS_ITS ---
HPI HPI - Psych History of Present Illness Chief Complaint: Anxiety Narrative Narrative: Patient has past psychiatric history of schizophrenia. She admits to using methamphetamines sometime last night along with beer. She denies any suicidal ideation, but she states that her medications are screwed up and that she wants to go to [facility]. She has increased psychosis and states that she is hearing voices, and hallucinating visually. She denies any fevers or chills. No other symptoms. PFSH PFS Medical History Drug abuse Home Medications Midodrine HCl 1 tab PO BID 04/07/20 [History Last Taken Unknown] gabapentin 600 mg PO Q6H 04/07/20 [History Last Taken Unknown] levetiracetam 500 mg PO BID 04/07/20 [History Last Taken Unknown] paliperidone palmitate 234 mg IM QMONTH 04/07/20 [History Last Taken Unknown] Unobtainable 09/22/20 [History Last Taken Unknown] Allergy/AdvReac Type Severity Reaction Status Date / Time codeine Allergy Hives Verified 08/01/21 07:08 Social History Smoking Status: Current every day smoker tobacco type: cigarettes ROS ROS ED ROS Narrative Constitutional: No fever, no chills. HEENT: No sore throat. No neck pain. No loss of vision. No rhinorrhea. Cardiovascular: No chest pain. No palpitations. No pedal edema. Respiratory: No cough, no shortness of breath. Abdominal: No abdominal pain. No nausea. No vomiting. Genitourinary: No dysuria. No hematuria. Musculoskeletal: No myalgias. No arthralgias. Neurologic: No headaches. No dizziness. No lightheadedness. Skin: No rash. No change in color. Psychiatric: No depression. No anxiety. No suicidal ideation. Positive visual and auditory hallucinations. EXAM Physical Exam Narrative Exam Narrative: Afebrile. Vital signs noted. HEENT: Normocephalic. Atraumatic. PERRL, EOMI. Neck soft and supple. No point tenderness or step off. Cardiovascular: Regular tachycardia. No murmurs, rubs, or gallops appreciated. Respiratory: No tachypnea. Lungs clear to auscultation bilaterally. Gastrointestinal: Abdomen soft, nontender, with normoactive bowel sounds. No rebound or guarding. Neurological: Awake. Alert. Nonfocal, nonlateralizing. Skin: No rash. Normal color. No pallor. Musculoskeletal: No pedal edema. Full range of motion extremities. Psychiatric: Positive agitation, rapidly moving feet. Able to concentrate. No active hallucinations. Const Vital Signs: 08/02/21 07:59 08/02/21 12:00 Temperature 98.2 F Temperature Source Temporal Pulse Rate 127 H Respiratory Rate 22 H 16 Blood Pressure 150/55 H Blood Pressure Mean 86 Pulse Ox 98 Oxygen Delivery Method Room Air MDM MDM MDM Narrative Medical decision making narrative: Medical clearance labs will be obtained. Initially, she declined anything for anxiety/agitation. Her CBC shows normal white count of 8.8, hemoglobin slightly elevated 15.4. Electrolyte panel is grossly unremarkable except for glucose appropriately elevated at 118 with a normal anion gap of 7. Ethyl alcohol is negative at less than 3.0. Her drug screen is positive for methamphetamines and amphetamines. She became agitated even more and began throwing things. She required initial dose of Geodon 10 mg intramuscularly. While she was able to be more directed, she became agitated again and received another dose of Geodon 10 mg intramuscularly. I do feel that she requires placement given her hallucinations that have become active. She told the RN that she feels that Yvonne is living in her vagina. I do feel that she is medically cleared for evaluation. According to case management, she has been accepted at [facility]. She will be cleared from her Geodon at approximately 1500. She will be transferred there in stable condition. Lab Data Attestation: I reviewed the patient's lab results. Labs: Laboratory Results - last 24 hr 08/02/21 08/02/21 08/02/21 08:35 08:35 08:35 WBC 8.8 RBC 4.88 Hgb 15.4 H Hct 44.5 MCV 91.2 MCH 31.6 MCHC 34.6 RDW Std Deviation 40.9 RDW Coeff of Alondra 12.3 Plt Count 374 MPV 10.0 Immature Gran % (Auto) 0.300 Neut % (Auto) 56.3 Lymph % (Auto) 31.7 [place] % (Auto) 9.9 Eos % (Auto) 1.3 Baso % (Auto) 0.5 Absolute Neuts (auto) 4.9 Absolute Lymphs (auto) 2.78 Nucleated RBC % 0 Sodium 138 Potassium 3.6 Chloride 103 Carbon Dioxide 28.0 Anion Gap 7 BUN 8 Creatinine 0.66 Estim Creat Clear Calc 80.37 Est GFR (MDRD) Af Amer 123 Est GFR (MDRD) Non-Af 102 BUN/Creatinine Ratio 12.1 Glucose 118 H Calcium 9.8 Troponin I High Sens 3 Serum , Qual Urine Opiates Screen Urine Methadone Screen Ur Barbiturates Screen Ur Phencyclidine Scrn Ur Amphetamines Screen U Methamphetamin-MDMA U Benzodiazepines Scrn Urine Cocaine Screen U Cannabinoids Screen Ur Drug Screen Comment Ethyl Alcohol < 3.0 08/02/21 08/02/21 08:35 09:40 WBC RBC Hgb Hct MCV MCH MCHC RDW Std Deviation RDW Coeff of Alondra Plt Count MPV Immature Gran % (Auto) Neut % (Auto) Lymph % (Auto) [place] % (Auto) Eos % (Auto) Baso % (Auto) Absolute Neuts (auto) Absolute Lymphs (auto) Nucleated RBC % Sodium Potassium Chloride Carbon Dioxide Anion Gap BUN Creatinine Estim Creat Clear Calc Est GFR (MDRD) Af Amer Est GFR (MDRD) Non-Af BUN/Creatinine Ratio Glucose Calcium Troponin I High Sens Serum , Qual NEGATIVE Urine Opiates Screen NEGATIVE Urine Methadone Screen NEGATIVE Ur Barbiturates Screen NEGATIVE Ur Phencyclidine Scrn NEGATIVE Ur Amphetamines Screen POSITIVE H U Methamphetamin-MDMA POSITIVE H U Benzodiazepines Scrn NEGATIVE Urine Cocaine Screen NEGATIVE U Cannabinoids Screen NEGATIVE Ur Drug Screen Comment Ethyl Alcohol Discharge Plan Triage Chief Complaint: Anxiety ED Provider: Sonny Fan Dx/Rx/DC Orders Clinical Impression: Schizophrenia, acute, Hallucinations, Psychosis, Methamphetamine abuse Prescriptions: No Action gabapentin 600 MG tablet 600 mg PO Q6H RF: 0 levetiracetam 500 MG tablet 500 mg PO BID RF: 0 paliperidone palmitate 234 MG/1.5 ML syringe 234 mg IM QMONTH RF: 0 Midodrine HCl 1 TAB 1 tab PO BID RF: 0 Unobtainable RF: 0 Primary Care Provider: Care Physician,No Primary Referrals: Care Physician,No Primary [Primary Care Provider] - Disposition Disposition: Psychiatric Hospital or Unit Discharge Location: [facility]
[2021-08-02 08:44] LABS: Absolute Lymphocyte Count 2.78 X10^3/uL (0.83-4.51); Absolute Neutrophil Count 4.9 X10^3/uL (2.0-7.7); Basophil# 0.04 X10^3/uL; Basophil% 0.5 % (0-1); Eosinophil# 0.11 X10^3/uL; Eosinophils% 1.3 % (0-5); Hematocrit 44.5 % (37-47); Hemoglobin 15.4 g/dL (12.0-15.0); Lymphocyte # 2.78 X10^3/ul (0.83-4.51); Lymphocyte % 31.7 % (19-41); Mean Corp Hgb Conc 34.6 g/dL (32-36); Mean Corpuscular Hgb 31.6 pg (27.0-32.0); Mean Corpuscular Volume 91.2 fL (81-99); Monocyte# 0.87 X10^3/uL; Monocyte% 9.9 % (0-10); NRBC Flagged by Analyzer 0 % (0-5); Neutrophil # 4.94 X10^3/uL (2.7-7.7); Neutrophil % 56.3 % (47-70); Platelet Count 374 K/mm3 (150-450); RBC Distribution Width CV 12.3 % (11.6-14.6); RBC Distribution Width SD 40.9 fl (35.1-43.9); Red Blood Count 4.88 M/mm3 (4.2-5.4); White Blood Count 8.8 K/mm3 (4.4-11.0)
[2021-08-02 09:05] LABS: Anion Gap 7 (5-15); BUN 8 mg/dL (7-18); BUN/Creat Ratio 12.1 RATIO (10-20); Calcium,Total 9.8 mg/dL (8.5-10.1); Chloride 103 mmol/L (98-107); Creatinine, Serum 0.66 mg/dL (0.55-1.02); EST Glomerular Filtration Rate 102 mL/min (>60); Est Glom Filt Rate - Afr Amer 123 mL/min (>60); Estimated Creatinine Clearance 80.37 ml/min; Glucose 118 mg/dL (74-106); Potassium 3.6 mmol/L (3.5-5.1); Sodium Level 138 mmol/L (136-145); Troponin-I HS 3 pg/mL (3.0-54.0)
[2021-08-02 09:28] LABS: Internal QC Validated? YES +Cl - CLEAR BKGD; Pregnancy, Serum, hCG Quali. NEGATIVE Negative
[2021-08-02 09:30] LABS: Alcohol, Blood (Medical)-Serum < 3.0 mg/dL
--- NOTE | 2021-08-02 09:48 | ED.RN ---
PT BECOMIMNG VERY AGITATED. WALKING OUT OF ROOM STATING SHE CAN SEE THE [place] TALKING ABOUT HER
[2021-08-02] MEDS: Ziprasidone IM 20 MG/ML VIAL 10 MG IM ×2 (10:03→11:13)
--- NOTE | 2021-08-02 10:04 | ED.RN ---
PT SCREAMING YOU NEED TO CHECK MY VAGINA FOR SATAN. PT REASSURRED,PROVIDER INFORMED
--- NOTE | 2021-08-02 10:08 | ED.RN ---
PT TO BE PINK SLIPPED PER DR GARCIA
[2021-08-02 10:14] LABS: Amphetamine Urine VISTA POSITIVE (<1000 ng/mL); Barbiturate Urine VISTA NEGATIVE (< 200 ng/mL); Benzodiazepine Urine VISTA NEGATIVE (< 200 ng/mL); Cocaine Urine VISTA NEGATIVE (< 300 ng/mL); Ecstacy Urine VISTA POSITIVE (< 500 ng/mL); Methadone Urine VISTA NEGATIVE (< 300 ng/mL); PCP Urine VISTA NEGATIVE (< 25 ng/mL); THC Urine VISTA NEGATIVE (< 50 ng/mL); Vista UDS pH Range 5
--- NOTE | 2021-08-02 10:39 | ED.RN ---
PT EATING CIGARS IN ROOM. REMOVED FROM ROOM. LABELED
--- NOTE | 2021-08-02 10:42 | ED.RN ---
PT THREW COKE ACROSS ROOM ONTO THE WALL. DRINK TAKEN AWAY.
--- NOTE | 2021-08-02 11:24 | CM.ED ---
BRODIE Note Referral Source: MD Referral Reason: Anxiety SW was advised by RN that Application for Emergency Hospital Admission ([facility]) has been completed for patient. [facility] stated that wrote Teagan is having increased auditory and visual hallucinations. She feels that her medications for schizophrenia are ineffective at controlling her symptoms. She admits to using methamphetamines and feels more anxious. She would benefit from Further psychiatric evaluation. SW spoke to AISHA Mullen who reports that patient stated that the medication scanner was reading her mind. RN stated patient has a history of schizoaffective disorder and reports hearing voices. RN reports that patient told her that she has anxiety and used meth last night. Patient was given 10 Geodon at 9:56 am as she became agitated and was walking out of the room stating she can see the red point talking about her. At 10:04 patient voiced you need to check my vagina for Satan. at 10:39 RN charted that patient was eating cigars in the room and subsequently they were removed. At 10:42 patient threw coke across the room and her drink was taken away. Patient continued to voice that Satan was in her vagina and she said that she was digging Satan out. Patient voiced that she wanted Satan out. Patient was given Geodon IM 10mg at 11:07am. When patient arrived at the hospital she was found to have meth in her cigarettes and the meth was given to hospital security. Staff also found a packet of white powder that was turned over to Officer Devan of [employer]. Per Previous Social Work Assessment completed in 2019 patient admits to history of anxiety and depression and states following with counseling but patient was unable to recall the name of the agency. Patient has been cooperative with staff in receiving IM Geodon. This renal social worker unable to interview her currently due to her paranoia and erratic behavior. Plan: [facility] has been completed for patient per MD. reports patient needs inpatient psych behavior. Plan is for inpatient psych hospitalization. Jacquelin GAMBOA
--- NOTE | 2021-08-02 11:45 | CM.ED ---
BRODIE Note BRODIE faxed Referrals to [facility] for their review. Jacquelin GAMBOA
[2021-08-02 12:00] VITALS: RESP 16
--- NOTE | 2021-08-02 12:25 | NURSING ---
TALKED WITH PHYSICIANS PT IS SCHEDULED FOR GANG RIDER AROUND 15:30
--- NOTE | 2021-08-02 12:48 | CM.ED ---
SW Note SW received call from Nilsa at [facility]. Patient was accepted at [facility] by [facility] on Dual Diagnosis Unit. RN to RN [phone]. MD and research instructor updated. Plan: [facility] for psych hospitalization Jacquelin GAMBOA
[2021-08-02 14:00] VITALS: BP 121/78; PULSE 97; RESP 18; O2SAT 100
== END 2021-08-02 15:07 ==
PROVIDERS: Emergency Provider Emergency Medicine
DX: F20.9 Schizophrenia, unspecified (principal); F41.9 Anxiety disorder, unspecified; F15.10 Other stimulant abuse, uncomplicated; Z79.899 Other long term (current) drug therapy; F17.210 Nicotine dependence, cigarettes, uncomplicated
CPT/HCPCS: 80048; 80307; 82077; 84484; 84703; 85025; 87426; 93005; 96372; 99285; J3486

== ENCOUNTER 2022-01-05 10:09 | Emergency (ER) | payer MEDICAID, SELFPAY ==
[2022-01-05 10:10] VITALS: BP 118/84; PULSE 87; RESP 14; TEMP 36.3; O2SAT 98; BMI 23.8
--- NOTE | 2022-01-05 10:23 | EDS_ITS ---
HPI History of Present Illness Chief Complaint: Other, Pain/Inj Narrative Narrative: Patient presents with multiple complaints. She has past medical history of psychosis, and states that since yesterday she noticed lesions on her hands that are itchy. She thinks that it is witchcraft. She states that they pulled her teeth approximately a month ago and that she has burning and stinging in her mouth, but no dry mouth. She states she is had low back pain, but denies any dysuria or hematuria. Her main concern is that she has had these things on her hands that itch, and admits to using hand manager talent management compulsively. She states she is supposed to be taking medications on a daily basis, but has been noncompliant. She denies any suicidal ideation or hallucinations. [facility] Medical History Drug abuse Home Medications NK 01/05/22 [History Last Taken Unknown] Allergy/AdvReac Type Severity Reaction Status Date / Time codeine Allergy Hives Verified 01/05/22 10:13 Social History Smoking Status: Current every day smoker tobacco type: cigarettes ROS ROS ED ROS Narrative Constitutional: No fever, no chills. HEENT: No sore throat. No neck pain. No loss of vision. No rhinorrhea. Mouth pain x1 month, burning and stinging. Cardiovascular: No chest pain. No palpitations. No pedal edema. Respiratory: No cough, no shortness of breath. Abdominal: No abdominal pain. No nausea. No vomiting. Genitourinary: No dysuria. No hematuria. Musculoskeletal: No myalgias. No arthralgias. Positive low back pain. Neurologic: No headaches. No dizziness. No lightheadedness. Skin: Positive rash and scabs on hand. No change in color. Psychiatric: No depression. No anxiety. No suicidal ideation. EXAM Physical Exam Narrative Exam Narrative: Afebrile. Vital signs noted. HEENT: Normocephalic. Atraumatic. PERRL, EOMI. Neck soft and supple. No point tenderness or step off. Adentulous. Cardiovascular: Regular rate and rhythm. No murmurs, rubs, or gallops appreciated. Respiratory: No tachypnea. Lungs clear to auscultation bilaterally. Gastrointestinal: Abdomen soft, nontender, with normoactive bowel sounds. No rebound or guarding. Neurological: Awake. Alert. Nonfocal, nonlateralizing. Skin: Positive rash on hands. Normal color. No pallor. Musculoskeletal: No pedal edema. Full range of motion extremities. Psychiatric: Constant wringing of hands, obsessed with cleansing hands. Positive anxiety. No active hallucinations or suicidal ideation. Const Vital Signs: 01/05/22 10:10 Temperature 97.3 F L Temperature Source Temporal Pulse Rate 87 Respiratory Rate 14 Blood Pressure 118/84 H Blood Pressure Mean 95 Pulse Ox 98 Oxygen Delivery Method Room Air MDM MDM MDM Narrative Medical decision making narrative: I reviewed her prior records. She had been sent to [facility] before. She has had polysubstance abuse in the past, mainly for amphetamines and methamphetamines. She will be given Vistaril orally here. She was told not to use any cleaning products on her hands excessively. She was told to take her medications. Her medical screening exam is essentially negative. I do not feel that she needs medical clearance for psychiatric admission on an emergent basis. She was discharged home in stable condition. Discharge Plan Triage Chief Complaint: Other, Pain/Inj ED Provider: Sonny Fan Dx/Rx/DC Orders Clinical Impression: Irritant hand dermatitis, Low back pain, Encounter for medical screening examination, Mouth pain Instructions: ED Back Pain (Acute or Chronic), ED Contact Dermatitis, ED Pain, Acute, Uncertain Cause Prescriptions: No Action NK RF: 0 Primary Care Provider: Care Physician,No Primary Referrals: Care Physician,No Primary [Primary Care Provider] - Disposition Disposition: Home, Self Care Discharge Date/Time: 01/05/22 10:42
[2022-01-05] MEDS: hydrOXYzine PAM 25 MG Capsule PO (10:37)
== END 2022-01-05 10:42 | disposition home or self-care (01) ==
PROVIDERS: Emergency Provider Emergency Medicine; Visit Provider Emergency Medicine
DX: L30.9 Dermatitis, unspecified (principal); F17.210 Nicotine dependence, cigarettes, uncomplicated; M54.50 Low back pain, unspecified; Z91.14 Patient's other noncompliance with medication regimen; K13.79 Other lesions of oral mucosa
CPT/HCPCS: 99283

== ENCOUNTER 2022-01-15 23:57 | Emergency (ER) | payer MEDICAID, SELFPAY ==
[2022-01-15 23:58] VITALS: BP 131/79; PULSE 116; RESP 22; TEMP 36.6; O2SAT 100; BMI 23.5
--- NOTE | 2022-01-16 00:19 | EDS_ITS ---
HPI History of Present Illness Chief Complaint: Substance Abuse Informant: patient Narrative Narrative: Patient was at local gas station [facility], she states that she was going to get a drink but then she decided against it. The gas line installer supervisor called EMS for her because she was acting bizarre. EMS brought her here because she agreed to come. However she cannot tell me any reason that she wanted to come here, nor can she tell me if anything is wrong. She answers no to all review of systems initially, later she coughs a little and states that she feels short of breath but then it resolves and she does not want any tests. She states now she cannot remember why she agreed to come here. She denies being suicidal. She still admits to having mental health problems like depression but denies having any type of crisis or acute issue with any of them. Staff and EMS both commented that she looks like she is on drugs and they think she has a history of drug use, but the patient denies using drugs [facility]. [facility] Medical History Drug abuse Home Medications NK 01/05/22 [History Last Taken Unknown] Allergy/AdvReac Type Severity Reaction Status Date / Time codeine Allergy Hives Verified 01/16/22 00:03 Social History Smoking Status: Current every day smoker tobacco type: cigarettes ROS ROS ED Constitutional Constitutional ED: Denies chills or fever(s) Eyes Eyes: Denies change in vision or diplopia ENT ENT ED: Denies rhinorrhea or sore throat Cardiovascular Cardiovascular: Denies chest pain or palpitations Respiratory/Chest Respiratory/Chest: Reports as per HPI, cough and dyspnea; Denies dyspnea on exertion Gastrointestinal Gastrointestinal: Denies abdominal pain, diarrhea, nausea or vomiting Genitourinary Genitourinary ED: Denies dysuria or hematuria Musculoskeletal Musculoskeletal: Denies back pain or neck pain Integumentary Denies abscess or rash Neurologic Neurologic: Denies headache(s), paresthesias or weakness Psychiatric Psychiatric: Reports as per HPI and behavioral changes; Denies suicidal thoughts EXAM Physical Exam Const Vital Signs: 01/15/22 23:58 Temperature 98 F Temperature Source Temporal Pulse Rate 116 H Respiratory Rate 22 H Blood Pressure 131/79 H Blood Pressure Mean 96 Pulse Ox 100 Oxygen Delivery Method Room Air Positive well nourished and well developed General Appearance ED: well developed and NAD HEENT Reports moist mucous membranes normocephalic and atraumatic Eyes PERRL and EOMs intact bilaterally Neck full ROM and supple Resp normal respiratory effort and clear to auscultation bilaterally Cardio regular rate, regular rhythm and no murmurs GI non-tender and non-distended Auscultation: normoactive bowel sounds Palpation: soft Back/Spine no CVA tenderness General Back: other FROM Extremity normal to inspection General Extremety ED: Negative for edema, pulses abnormal or tenderness General Extremity: Negative for edema or pulses abnormal Neuro oriented x3, CN's II-XII intact bilaterally and no sensory deficits noted Sensorium / Orientation: awake and alert Motor Exam: strength 5/5 throughout Psych cooperative, speech normal, denies homicidal ideation and denies suicidal ideation Psych Narrative: Lots of lip movements, like she is talking silently to somebody; suppresses when she talks to me. No chorea. Less like dystonic movements. No involvement of extremities. Attitude: bizarre Activity / Motor Behavior: psychomotor agitation Skin no rashes or lesions noted and no wounds MDM MDM MDM Narrative Medical decision making narrative: I offered patient testing, discharge, or to look at anything else that she was concerned about. She just wanted to rest so I observed her for a while and went back and reevaluated her, she states she was feeling better but when I asked her what was wrong in the first place, she states that she just had a really rough day and does not want to talk about it. She states she was wandering around in the gas [employer] convenience store and she is not sure why. She is anxious and would like a glass of water. Will be discharged afterwards. Discharge Plan Triage Chief Complaint: Substance Abuse ED Provider: Eb Fleming Dx/Rx/DC Orders Clinical Impression: Bizarre behavior Instructions: Anxiety Disorders Tx Therapy Prescriptions: No Action NK RF: 0 Primary Care Provider: Care Physician,No Primary Referrals: Counseling,Center [GROUP OF PHYSICIANS] - As Needed Care Physician,No Primary [Primary Care Provider] - Disposition Disposition: Home, Self Care
[2022-01-16 02:03] VITALS: BP 111/79; PULSE 117; RESP 20; O2SAT 99
== END 2022-01-16 02:04 | disposition home or self-care (01) ==
PROVIDERS: Emergency Provider Emergency Medicine; Visit Provider Emergency Medicine
DX: R46.2 Strange and inexplicable behavior (principal); F32.A Depression, unspecified; F17.210 Nicotine dependence, cigarettes, uncomplicated
CPT/HCPCS: 99282

== ENCOUNTER 2022-01-18 08:15 | Emergency (ER) | payer MEDICAID, SELFPAY ==
[2022-01-18] VITALS (7 sets, daily range): BP systolic 145; BP diastolic 93; PULSE 117; RESP 15–30; TEMP 37.2; O2SAT 99; BMI 22.2
[2022-01-18] MEDS: Ziprasidone IM 20 MG/ML VIAL IM (08:20)
--- NOTE | 2022-01-18 08:32 | EDS_ITS ---
HPI HPI - Psych History of Present Illness Chief Complaint: Mental Health Detail of Chief Complaint: Noncompliance with psychiatric medication and acute exacerbation Informant: patient and police/technical sales specialist Onset/Context/Timing Onset: - (Has not taken medicine for some time) Context: Unable to determine Conflict: - (Noncompliance with medication) Timing: Continuous (Presumed) Current Severity: Moderate Maximum Severity: Severe Worsened by: Situational factors and Alcohol intoxication Relieved by: Nothing Associated Symptoms Associated Symptoms - Psych: Positive for Change in Eating, Change in sleeping, Easily distracted, Flight of Ideas, Increased activity, Pressured Speech, Agitated, Hostile (Hostile poor law enforcement), Visual Hallucinations and Auditory Hallucinations; Negative for Suicidal Thoughts, Angry, Threatening, Confusion and Paranoia Specific plan (suicidal thought): Not applicable Narrative Narrative: Patient is a 46-year-old woman with history of psychiatric disorder. Law enforcement was called because she was behind a business for hitting the air and talking to people who were not there. As I entered the room patient has pressured speech hyperactivity. She stated without prompting that she has not taken her medicine in some time. She states she is seeing [facility]. She states she is getting the fuck out of [place]. She does not know where she is going. She denies suicidal homicidal thoughts. Patient is redirectable. She does answer questions. She began swatting her arm because of stating . She informed the nursing staff she has a rash on her left wrist. She does admit to methamphetamine use. She states has not used in a couple of days. She does endorse smoking. Recent Illness/Hospitalization: No PFSH PFSH Medical History Drug abuse Home Medications NK 01/05/22 [History Last Taken Unknown] Allergy/AdvReac Type Severity Reaction Status Date / Time codeine Allergy Hives Verified 01/16/22 00:03 Social History (Updated 01/18/22 @ 08:[address] Moris Marcus MD) household members: none Smoking Status: Current every day smoker tobacco type: cigarettes substance use type: methamphetamine ROS ROS ED Review of Systems ROS Unobtainable: due to mental condition Constitutional Constitutional ED: Denies fever(s) or subjective Eyes Eyes: Denies blurry vision, change in vision or diplopia ENT ENT ED: Denies ear pain, rhinorrhea or sore throat Cardiovascular Cardiovascular: Denies chest pain or palpitations Respiratory/Chest Respiratory/Chest: Reports dyspnea and other Details: She states she is breathing rapidly because she is pissed off . ; Denies cough or dyspnea on exertion Gastrointestinal Gastrointestinal: Denies abdominal pain, diarrhea, nausea or vomiting Genitourinary Genitourinary ED: Denies dysuria, hematuria or urinary frequency Musculoskeletal Musculoskeletal: Denies arthralgias, myalgias or neck pain Integumentary Reports rash Neurologic Neurologic: Denies headache(s), paresthesias or weakness Psychiatric Psychiatric: Denies suicidal ideation or suicidal thoughts Hematologic/Lymphatic Hematologic/Lymphatic: Denies easy bleeding or easy bruising EXAM Physical Exam Const Vital Signs: 01/18/22 08:15 01/18/22 10:15 01/18/22 13:19 Temperature 98.9 F Temperature Source Temporal Pulse Rate 117 H Respiratory Rate 30 H 20 H 17 Blood Pressure 145/93 H Blood Pressure Mean 110 Pulse Ox 99 99 Oxygen Delivery Method Room Air Room Air Positive well nourished, well developed and unkempt General Appearance ED: unkempt, well developed and other Patient is hyperactive. Speech is pressured. She is disheveled. She is not well groomed. ; Negative for NAD or pallor HEENT Reports TM's clear; Denies moist mucous membranes HEENT Narrative: Mucosas dry. She has a lesion on her lower lip. Does not appear herpetic. normocephalic and atraumatic Tympanic Membrane ED: Yes TM's clear Eyes PERRL and EOMs intact bilaterally General Eye ED: Negative for pale conjunctiva or scleral icterus Neck no lymphadenopathy, supple and no JVD Resp normal respiratory effort and clear to auscultation bilaterally Cardio S1 normal heart sound, S2 normal heart sound and no murmurs Rate: tachycardic Rhythm: regular rhythm GI non-tender, non-distended and no masses Auscultation: normoactive bowel sounds Palpation: soft Back/Spine no CVA tenderness Cervical Spine: Negative for cervical spine tenderness Thoracic Spine / Upper Back: Negative for thoracic spinal tenderness Lumbar Spine / Lower Back: Negative for lumbar spinal tenderness Extremity normal to inspection Extremity Narrative: There is a rash that may represent a contact dermatitis with infection left wrist. There is no lymphangitis. There is no induration. There is no epitrochlear lymphadenopathy. There is no fluctuance. General Extremety ED: Yes other findings; Negative for edema or tenderness General Extremity: other findings; Negative for edema Neuro CN's II-XII intact bilaterally, no sensory deficits noted and deep tendon reflexes 2+ bilaterally [place] Coma Scale: document GCS findings Spontaneous Obeys Commands Oriented 15 Sensorium / Orientation: alert Motor Exam: strength 5/5 throughout and muscle tone normal throughout Psych denies homicidal ideation and denies suicidal ideation Appearance: unkempt and disheveled Attitude: bizarre and agitated Activity / Motor Behavior: psychomotor agitation, hyperactive, disorganized and restless Speech: excessive, rapid, loud and pressured Mood & Affect: elevated mood and labile affect Thought Process: disorganized, loose associations and racing thoughts Thought Content: No suicidality, No homicidality and hallucination(s) Positive for auditory, visual and tactile Attention / Concentration: attention grossly impaired Memory / Cognition: other Unable to determine Insight: poor Judgement: poor Skin General Skin Exam: Negative for jaundice or pallor Rashes: rashes noted MDM MDM MDM Narrative Medical decision making narrative: Appropriate laboratory studies were obtained to determine if patient has medical condition to explain her behavior. Patient will need placement at psychiatric facility. Patient received 20 mg of Geodon upon arrival based on what the officer witnessed and informed staff prior to her arrival. Lab Data Attestation: I reviewed the patient's lab results. Lab results narrative: Potassium is 2.8. Plan is potassium solution 40 mEq now and in 1 hour and in 2 hours. CBC is remarkable for mild anemia, which is insignificant. Comprehensive metabolic panel is unremarkable with the exception of the potassium of 2.8. EtOH is 3. test is negative. Patient's urine reveals bacteria. There is no pyuria. She is asymptomatic. Will treat with 1 dose of Rocephin which has a cure rate of 90-95%. This would not explain her psychotic episode. She does have ketones in her urine consistent with her not eating or drinking much these past several days. Labs: Laboratory Results - last 24 hr 01/18/22 01/18/22 01/18/22 08:25 08:25 08:25 WBC 8.3 RBC 3.67 L Hgb 11.7 L Hct 33.9 L MCV 92.4 MCH 31.9 MCHC 34.5 RDW Std Deviation 45.0 H RDW Coeff of Alondra 13.3 Plt Count 368 MPV 10.4 Immature Gran % (Auto) 0.700 Neut % (Auto) 68.0 Lymph % (Auto) 21.1 [place] % (Auto) 8.5 Eos % (Auto) 1.3 Baso % (Auto) 0.4 Absolute Neuts (auto) 5.7 Absolute Lymphs (auto) 1.76 Nucleated RBC % 0 Sodium 140 Potassium 2.8 L Chloride 106 Carbon Dioxide 21.0 Anion Gap 13 BUN 13 Creatinine 0.50 L Estim Creat Clear Calc 104.96 Est GFR (MDRD) Af Amer 168 Est GFR (MDRD) Non-Af 139 BUN/Creatinine Ratio 25.8 H Glucose 99 Calcium 8.9 Total Bilirubin 0.70 AST 13 L ALT 19 Alkaline Phosphatase 89 Total Protein 7.1 Albumin 3.7 Globulin 3.4 Albumin/Globulin Ratio 1.1 Serum , Qual Urine Color Urine Clarity Urine pH Ur Specific [place] Urine Protein Urine Glucose (UA) Urine Ketones Urine Occult Blood Urine Nitrite Urine Bilirubin Urine Urobilinogen Ur Leukocyte Esterase Urine RBC Urine WBC Ur Squamous Epith Cells Urine Bacteria Urine Mucus Urine Opiates Screen Urine Methadone Screen Ur Barbiturates Screen Ur Phencyclidine Scrn Ur Amphetamines Screen MDMA (Ecstasy) Screen U Benzodiazepines Scrn Urine Cocaine Screen U Cannabinoids Screen Ur Drug Screen Comment Ethyl Alcohol 3.0 01/18/22 01/18/22 01/18/22 08:25 10:35 10:35 WBC RBC Hgb Hct MCV MCH MCHC RDW Std Deviation RDW Coeff of Alondra Plt Count MPV Immature Gran % (Auto) Neut % (Auto) Lymph % (Auto) [place] % (Auto) Eos % (Auto) Baso % (Auto) Absolute Neuts (auto) Absolute Lymphs (auto) Nucleated RBC % Sodium Potassium Chloride Carbon Dioxide Anion Gap BUN Creatinine Estim Creat Clear Calc Est GFR (MDRD) Af Amer Est GFR (MDRD) Non-Af BUN/Creatinine Ratio Glucose Calcium Total Bilirubin AST ALT Alkaline Phosphatase Total Protein Albumin Globulin Albumin/Globulin Ratio Serum , Qual NEGATIVE Urine Color Yellow Urine Clarity Clear Urine pH 6.0 Ur Specific [place] 1.015 Urine Protein Negative Urine Glucose (UA) Normal Urine Ketones 150 A* Urine Occult Blood 150 H Urine Nitrite Negative Urine Bilirubin Negative Urine Urobilinogen Normal Ur Leukocyte Esterase 25 H Urine RBC 0 SEEN Urine WBC 0-5 SEEN Ur Squamous Epith Cells 0-5 SEEN Urine Bacteria 2+ Urine Mucus 0 SEEN Urine Opiates Screen NEGATIVE Urine Methadone Screen NEGATIVE Ur Barbiturates Screen NEGATIVE Ur Phencyclidine Scrn NEGATIVE Ur Amphetamines Screen POSITIVE H MDMA (Ecstasy) Screen POSITIVE H U Benzodiazepines Scrn NEGATIVE Urine Cocaine Screen NEGATIVE U Cannabinoids Screen NEGATIVE Ur Drug Screen Comment Ethyl Alcohol Discharge Plan Triage Chief Complaint: Mental Health ED Provider: Moris Marcus Dx/Rx/DC Orders Clinical Impression: Acute exacerbation of psychosis, Auditory hallucinations, Hallucination, visual, Bacteria in urine, Ketosis, Amphetamine use, Ecstasy use disorder, mild, abuse Prescriptions: No Action NK RF: 0 Primary Care Provider: Care Physician,No Primary Referrals: Care Physician,No Primary [Primary Care Provider] - Disposition Disposition: Psychiatric Hospital or Unit
[2022-01-18 08:37] LABS: Absolute Lymphocyte Count 1.76 X10^3/uL (0.83-4.51); Absolute Neutrophil Count 5.7 X10^3/uL (2.0-7.7); Basophil# 0.03 X10^3/uL; Basophil% 0.4 % (0-1); Eosinophil# 0.11 X10^3/uL; Eosinophils% 1.3 % (0-5); Hematocrit 33.9 % (37-47); Hemoglobin 11.7 g/dL (12.0-15.0); Lymphocyte # 1.76 X10^3/ul (0.83-4.51); Lymphocyte % 21.1 % (19-41); Mean Corp Hgb Conc 34.5 g/dL (32-36); Mean Corpuscular Hgb 31.9 pg (27.0-32.0); Mean Corpuscular Volume 92.4 fL (81-99); Mean Platelet Vol. 10.4 fl (6.2-12.0); Monocyte# 0.71 X10^3/uL; Monocyte% 8.5 % (0-10); NRBC Flagged by Analyzer 0 % (0-5); Neutrophil # 5.66 X10^3/uL (2.7-7.7); Platelet Count 368 K/mm3 (150-450); RBC Distribution Width CV 13.3 % (11.6-14.6); Red Blood Count 3.67 M/mm3 (4.2-5.4); White Blood Count 8.3 K/mm3 (4.4-11.0)
[2022-01-18 08:53] LABS: ALB/GLOB Ratio 1.1 RATIO (0.9-2.4); AST(SGOT) 13 U/L (15-37); Alanine Aminotransfer ALT/SGPT 19 U/L (13-56); Albumin, Serum 3.7 g/dL (3.2-5.0); Alkaline Phosphatase 89 U/L (45-117); Anion Gap 13 (5-15); BUN 13 mg/dL (7-18); BUN/Creat Ratio 25.8 RATIO (10-20); Calcium,Total 8.9 mg/dL (8.5-10.1); Chloride 106 mmol/L (98-107); EST Glomerular Filtration Rate 139 mL/min (>60); Est Glom Filt Rate - Afr Amer 168 mL/min (>60); Estimated Creatinine Clearance 104.96 ml/min; Globulin 3.4 g/dL (2.2-4.2); Glucose 99 mg/dL (74-106); Internal QC Validated? YES +Cl - CLEAR BKGD; Potassium 2.8 mmol/L (3.5-5.1); Pregnancy, Serum, hCG Quali. NEGATIVE Negative; Protein, Total 7.1 g/dL (6.4-8.2); Sodium Level 140 mmol/L (136-145)
[2022-01-18] MEDS: Potassium Chloride Oral Soln 20 MEQ/15 ML UDC 40 MEQ PO ×2 (09:39→13:18)
[2022-01-18 10:40] LABS: Mucous, Urine 0 SEEN /hpf (<or=2+); Red Blood Cells-Urine 0 SEEN /hpf (0-5)
[2022-01-18 10:45] LABS: Color, Urine Yellow (Yellow); Glucose, Dipstick Normal (Normal); Leukocyte Esterase-Dipstick 25 /ul (Negative); Nitrite-Dipstick Negative (Negative); Occult Blood-Urine 150 /ul (Negative); Protein-Dipstick Negative (Negative); Specific Gravity, Urine 1.015 (1.002-1.030); Urine Bilirubin Dipstick Negative (Negative); Urine Clarity Clear (Clear); Urine Urobilinogen Normal (Normal)
[2022-01-18 10:47] LABS: Ketone-Dipstick 150 mg/dl (Negative)
[2022-01-18 10:52] LABS: Bacteria 2+ /hpf (None Seen); Squamous Epithelial Cells - UA 0-5 SEEN /hpf (5-10); White Blood Cells 0-5 SEEN /hpf (0-5)
[2022-01-18 11:03] LABS: Amphetamine Urine VISTA POSITIVE (<1000 ng/mL); Barbiturate Urine VISTA NEGATIVE (< 200 ng/mL); Benzodiazepine Urine VISTA NEGATIVE (< 200 ng/mL); Cocaine Urine VISTA NEGATIVE (< 300 ng/mL); Ecstacy Urine VISTA POSITIVE (< 500 ng/mL); Methadone Urine VISTA NEGATIVE (< 300 ng/mL); PCP Urine VISTA NEGATIVE (< 25 ng/mL); THC Urine VISTA NEGATIVE (< 50 ng/mL); Vista UDS pH Range 6
[2022-01-18 18:37] LABS: Potassium 3.7 mmol/L (3.5-5.1)
--- NOTE | 2022-01-18 20:44 | NURSING ---
ACCEPTED TO [place] BY DR. GOLDBERG [phone] REPORT
--- NOTE | 2022-01-18 23:11 | NURSING ---
CALLED PHYSICIANS FOR A RIDE AND WAS AT FIRST TOLD 4-5 HOURS. THEY CALLED BACK STATING THEY WOULD NOT BE ABLE TO DO THE TRIP UNTIL MORNING.
[2022-01-19 01:00] VITALS: RESP 18
[2022-01-19 01:47] VITALS: PULSE 110; RESP 18; O2SAT 97
[2022-01-19 03:00] VITALS: RESP 18
[2022-01-19 04:39] VITALS: BP 107/64; PULSE 97; RESP 16; TEMP 36.6; O2SAT 97
[2022-01-19 05:00] VITALS: RESP 15
== END 2022-01-19 06:39 ==
PROVIDERS: Emergency Medicine; Emergency Provider Emergency Medicine; Visit Provider Emergency Medicine
DX: F23 Brief psychotic disorder (principal); F16.10 Hallucinogen abuse, uncomplicated; E88.89 Other specified metabolic disorders; F15.90 Other stimulant use, unspecified, uncomplicated; F17.210 Nicotine dependence, cigarettes, uncomplicated; Z91.14 Patient's other noncompliance with medication regimen; R82.71 Bacteriuria; R21 Rash and other nonspecific skin eruption; D64.9 Anemia, unspecified; K13.0 Diseases of lips
CPT/HCPCS: 80053; 80307; 81001; 82077; 84132; 84703; 85025; 87811; 96365; 96366; 96372; 99285; J7050; A4216; J0696; J3486